=== PATIENT | female | born 1985 | race Caucasian/White ===

== ENCOUNTER 2018-02-07 16:11 | Emergency (ER) | payer BC, OTHER ==
[~2018-02-07] VITALS: Ht 172.7 cm; Wt 86.5 kg
[~2018-02-07 16:11] MED LIST: ACET-1693 PO; CAFF200T13 PO
[2018-02-07 16:16] VITALS: TEMP 36.3; Ht 172.7 cm; Wt 86.5 kg
[2018-02-07] MEDS ORDERED: ALBUT/IPRATROP 3MG/0.5MG NEB 3 ML VIAL INH STA (16:26)
[2018-02-07] MEDS ORDERED: SODIUM CHLORIDE 0.9% 1000ML 2,000 ML IV STA (16:26)
[2018-02-07] MEDS ORDERED: KETOROLAC TROMETHAMINE 30 MG/ML VIAL IV STA (16:26)
[2018-02-07] MEDS ORDERED: DEXAMETHASONE **PF** INJ 10 MG/ML VIAL IV ONE (16:30)
--- NOTE | 2018-02-07 16:39 | EMERGENCY ROOM VISIT NOTE ---
History Report prepared by Guillermo: Dev Perdomo Under the Supervision of: Dr. Gary Sinclair M.D. First contact with patient: 16:22 Chief Complaint: RESPIRATORY PROBLEMS Stated Complaint: REFFERED BY [facility] [employer],POSSIBLE PNEUMONIA,RESP Nursing Triage Summary: Dx with bronchitis on Friday at [facility]. Was given prednisone, albuterol inhaler, and tessalon pearls. Also taking mucinex and cough drops. Pt reports she is getting worse, medications not helping at all. "I just can't breathe at all". Verbalizing she is having difficulty swallowing, though denies sore throat, feels like she is going to pass out, is losing her voice, headache, and isn't sleeping because of orthopnea and coughing. History of Present Illness The patient is a 32 year old female who presents to the Emergency Room with complaints of constant SOB beginning two weeks ago. The patient states that she has been having congestion and a cough for the last two weeks. She notes that she went to [facility] 3 days ago, and was diagnosed with bronchitis. She reports that she was given prednisone and albuterol and has also been taking Mucinex. The patient states that she was referred to the emergency department today. She also complains of lightheadedness, CP, a dry throat, ear pain, and headache. She denies any nausea, vomiting, diarrhea, and urinary symptoms. She notes that she feels lightheaded when she stands up. She reports that her symptoms worsen when she lies flat or takes a deep breath. The patient states that when she coughs, her pain feels like a chest cramp. She notes that she took Tylenol at 0600 this morning. She denies any history of cancer and blood clots. Source of History: patient Onset: two weeks ago Position: chest Quality: cramping Timing: constant Modifying Factors (Worsening): breathing, other (lying flat) Associated Symptoms: + headache, + cough, + chest pain, No nausea, No vomiting, No diarrhea, No urinary symptoms Note: The patient also complains of congestion, lightheadedness, a dry throat, and ear pain. Review of Systems See HPI for pertinent positives and negatives. A total of ten systems were reviewed and were otherwise negative. Past Medical & Surgical Medical Problems: (1) Abdominal pain complicating , antepartum (2) Acute abdominal pain (3) Bronchitis (4) (5) Vaginal bleeding Surgical Problems: (1) History of tonsillectomy Family History No pertinent family history stated. Social History Smoking Status: Never Smoker Alcohol Use: none Drug Use: none Marital Status: Occupation Status: unemployed Current/Historical Medications Scheduled Azithromycin (Zithromax), 250 MG PO DAILY Scheduled PRN Acetaminophen Tab (Tylenol), 650 MG PO Q4 PRN for Pain or Fever Caffeine (Caffeine), 1 TAB PO DAILY PRN for Headache or Pain Ibuprofen Tab (Motrin), 800 MG PO Q8H PRN for Pain Loratadine (Claritin), 10 MG PO DAILY PRN for CONGESTION Allergies Coded Allergies: Bismuth (Verified Allergy, Mild, FACIAL SWELLING/EYES SWELLED SHUT, ) Bismuth Subsalicylate (Verified Allergy, Mild, EYES SWELLED SHUT, FACIAL SWELLING, 02/07/18) Sulfa Drugs (Verified Allergy, Mild, 02/07/18) Sulfamethoxazole (Verified Allergy, Mild, 02/07/18) Trimethoprim (Verified Allergy, Mild, 02/07/18) Uncoded Allergies: CONTROL (Allergy, Intermediate, itching, 09/10/15) patient states that alot of control makes her itch. Physical Exam Vital Signs Date Time Temp Pulse Resp B/P (MAP) Pulse Ox O2 Delivery O2 Flow Rate FiO2 02/07/18 20:01 82 20 127/83 98 02/07/18 17:45 82 20 140/88 100 Room Air 02/07/18 16:16 36.3 81 20 141/99 97 Room Air 02/07/18 16:16 98 Room Air Physical Exam GENERAL: Awake, alert, relatively well-appearing, in no distress, hoarse voice. HENT: Normocephalic, atraumatic. Oropharynx unremarkable. Dry MM. No oropharyngeal edema or injection, no tongue elevation or trismus, no stridor. EYES: Normal conjunctiva. Sclera non-icteric. NECK: Supple. No nuchal rigidity. FROM. No JVD. RESPIRATORY: Clear to auscultation. CARDIAC: Regular rate, normal rhythm. Extremities warm and well perfused. Pulses equal. ABDOMEN: Soft, non-distended. No tenderness to palpation. No rebound or guarding. No masses. RECTAL: Deferred. MUSCULOSKELETAL: Chest examination reveals no tenderness. The back is symmetrical on inspection without obvious abnormality. There is no CVA tenderness to palpation. No joint edema. LOWER EXTREMITIES: Calves are equal size bilaterally and non-tender. No edema. No discoloration. NEURO: Normal sensorium. No sensory or motor deficits noted. SKIN: No rash or jaundice noted. Medical Decision & Procedures ER Provider Diagnostic Interpretation: Radiology results as stated below per my review and radiologist interpretation: CHEST ONE VIEW PORTABLE FINDINGS: The bones soft tissues and hemidiaphragms are normal. The cardiomediastinal silhouette is normal. The lungs are clear. The pulmonary vasculature is normal. IMPRESSION: Negative chest. The above report was generated using voice recognition software. It may contain grammatical, syntax or spelling errors. Electronically signed by: Ivan Alvarez M.D. 02/07/2018 5:09 PM Laboratory Results 02/07/18 16:43 Red Blood Count 4.39, Mean Corpuscular Volume 88.6, Mean Corpuscular Hemoglobin 27.8, Mean Corpuscular Hemoglobin Concent 31.4, Mean Platelet Volume 9.6, Neutrophils (%) (Auto) 81.4, Lymphocytes (%) (Auto) 14.3, Monocytes (%) (Auto) 3.3, Eosinophils (%) (Auto) 0.4, Basophils (%) (Auto) 0.4, Neutrophils # (Auto) 4.44, Lymphocytes # (Auto) 0.78, Monocytes # (Auto) 0.18, Eosinophils # (Auto) 0.02, Basophils # (Auto) 0.02 02/07/18 16:43 Test 02/07/18 16:43 02/07/18 16:55 02/07/18 18:32 White Blood Count 5.45 K/uL (4.8-10.8) Red Blood Count 4.39 M/uL (4.2-5.4) Hemoglobin 12.2 g/dL (12.0-16.0) Hematocrit 38.9 % (37-47) Mean Corpuscular Volume 88.6 fL (80-100) Mean Corpuscular Hemoglobin 27.8 pg (25-34) Mean Corpuscular Hemoglobin Concent 31.4 g/dl (32-36) Platelet Count 257 K/uL (130-400) Mean Platelet Volume 9.6 fL (7.4-10.4) Neutrophils (%) (Auto) 81.4 % Lymphocytes (%) (Auto) 14.3 % Monocytes (%) (Auto) 3.3 % Eosinophils (%) (Auto) 0.4 % Basophils (%) (Auto) 0.4 % Neutrophils # (Auto) 4.44 K/uL (1.4-6.5) Lymphocytes # (Auto) 0.78 K/uL (1.2-3.4) Monocytes # (Auto) 0.18 K/uL (0.11-0.59) Eosinophils # (Auto) 0.02 K/uL (0-0.5) Basophils # (Auto) 0.02 K/uL (0-0.2) RDW Standard Deviation 46.3 fL (36.4-46.3) RDW Coefficient of Variation 14.2 % (11.5-14.5) Immature Granulocyte % (Auto) 0.2 % Immature Granulocyte # (Auto) 0.01 K/uL (0.00-0.02) Anion Gap 6.0 mmol/L (3-11) Est Creatinine Clear Calc Drug Dose 98.8 ml/min Estimated GFR () 92.5 Estimated GFR (Non- 79.8 BUN/Creatinine Ratio 17.1 (10-20) Calcium Level 9.0 mg/dl (8.5-10.1) Total Bilirubin 0.3 mg/dl (0.2-1) Direct Bilirubin < 0.1 mg/dl (0-0.2) Aspartate Amino Transf (AST/SGOT) 30 U/L (15-37) Alanine Aminotransferase (ALT/SGPT) 49 U/L (12-78) Alkaline Phosphatase 71 U/L (45-117) Troponin I < 0.015 ng/ml (0-0.045) Total Protein 7.9 gm/dl (6.4-8.2) Albumin 3.8 gm/dl (3.4-5.0) Lipase 97 U/L (73-393) Urine Color YELLOW Urine Appearance CLEAR (CLEAR) Urine pH 7.0 (4.5-7.5) Urine Specific Beltrami 1.024 (1.000-1.030) Urine Protein NEG (NEG) Urine Glucose (UA) NEG (NEG) Urine Ketones NEG (NEG) Urine Occult Blood NEG (NEG) Urine Nitrite NEG (NEG) Urine Bilirubin NEG (NEG) Urine Urobilinogen NEG (NEG) Urine Leukocyte Esterase NEG (NEG) Urine Test NEG (NEG) Influenza Type A Antigen Neg for Influ A (NEG) Influenza Type B Antigen Neg for Influ B (NEG) Bedside D-Dimer > 450 ng/mlFEU (0-450) Laboratory results reviewed by me Medications Administered Medications (Trade) Dose Ordered Sig/Kevin Route Start Time Stop Time Status Last Admin Dose Admin Sodium Chloride 2,000 ml @ 999 mls/hr Q2H1M STAT IV 02/07/18 16:26 02/07/18 18:26 DC 02/07/18 16:48 999 MLS/HR Ketorolac Tromethamine (Toradol Inj) 15 mg NOW STAT IV 02/07/18 16:26 02/07/18 16:33 DC 02/07/18 16:49 15 MG Dexamethasone Sodium Phosphate (Dexamethasone Inj Pf) 10 mg NOW ONCE IV 02/07/18 16:30 02/07/18 16:33 DC 02/07/18 16:49 10 MG Albuterol/ Ipratropium (Duoneb) 3 ml NOW STAT INH 02/07/18 16:26 02/07/18 16:33 DC 02/07/18 16:49 3 ML Acetaminophen (Tylenol Tab) 1,000 mg NOW STAT PO 02/07/18 17:50 02/07/18 17:52 DC 02/07/18 17:57 1,000 MG Azithromycin (Zithromax Tab) 500 mg NOW STAT PO 02/07/18 18:06 02/07/18 18:07 DC 02/07/18 18:32 500 MG ECG Per My Interpretation Indication: SOB/dyspnea Rate (beats per minute): 70 Rhythm: normal sinus Findings: other (Normal axis, no acute ischemia) ED Course 162: The patient was evaluated in room B3. A complete history and physical exam was performed. 1805: I reevaluated and updated the patient. 1820: I reevaluated the patient. Discussed results and discharge instructions: She verbalized understanding and agreement. The patient is ready for discharge. Medical Decision I reviewed the patient's past medical history, medications, and the nursing notes as described above. Differential diagnosis: Etiologies such as infections, reactive airway disease, pneumonia, pneumothorax , COPD, CHF, cardiac ischemia, pulmonary embolism, musculoskeletal, gastrointestinal, as well as others were entertained. The patient is a 32-year-old woman presents emergency department with worsening symptoms of cough congestion, sore throat, chest pain over the past 2 weeks currently being managed for bronchitis with prednisone and albuterol after seen in urgent care earlier in the week per hpi. On arrival the patient is in no acute distress, afebrile stable vital signs. Labs unremarkable including WBC and troponin within normal limits. Chest x-ray negative for pneumonia. While the is PERC negative. Patient continued to complain of severe pleuritic chest pain and so d-dimer was sent which was elevated. Subsequent CT PE was negative for PE or pneumonia. Thus, the patient's symptoms are most likely related to a bronchitis. We will add azithromycin to the patient's treatment and the patient will follow up with her PCP next week. Findings and plan for follow-up reviewed with patient. Patient agreeable and d/c'd per discharge instructions. Medication Reconcilliation Current Medication List: was personally reviewed by me Blood Pressure Screening Patient's blood pressure: Elevated blood pressure Blood pressure disposition: Elevated BP felt to be situational Impression Primary Impression: Bronchitis Scribe Attestation The scribe's documentation has been prepared under my direction and personally reviewed by me in its entirety. I confirm that the note above accurately reflects all work, treatment, procedures, and medical decision making performed by me. Departure Information Dispostion Home / Self-Care Prescriptions Ibuprofen Tab (MOTRIN) 800 Mg Tab 800 MG PO Q8H Y for Pain for 7 Days, #21 TAB Prov: Gary Sinclair M.D. 02/07/18 Azithromycin (Zithromax) 250 Mg Tab 250 MG PO DAILY, #4 TAB Prov: Gary Sinclair M.D. 02/07/18 Referrals Jaswinder Martinez M.D. (PCP) Forms HOME CARE DOCUMENTATION FORM, IMPORTANT VISIT INFORMATION, WORK / SCHOOL INSTRUCTIONS Patient Instructions ED Bronchitis Asthmatic, [facility] Additional Instructions Please follow up with your primary care physician in the next 1-3 days for re- evaluation. You likely have a bronchitis. Otherwise, your exam, EKG, chest xray, and lab results did not show signs of an emergent condition at this time. Azithromycin as directed. Use your albuterol inhaler 2 puffs every 4 hours for the next 48 hours and then as needed thereafter. Return to the emergency department for worsening symptoms as described in the accompanying instructions.
[2018-02-07 17:00] LABS: BASO % 0.4 %; BASO ABS # 0.02 K/uL (0-0.2); EOS % 0.4 %; EOS ABS # 0.02 K/uL (0-0.5); HEMATOCRIT 38.9 % (37-47); HEMOGLOBIN 12.2 g/dL (12.0-16.0); IG# 0.01 K/uL (0.00-0.02); LYMPH % 14.3 %; LYMPH ABS # 0.78 K/uL (1.2-3.4); MEAN CELL VOLUME 88.6 fL (80-100); MEAN CORPUSCULAR HEMOGLOBIN 27.8 pg (25-34); MEAN CORPUSCULAR HGB CONC 31.4 g/dl (32-36); MEAN PLATELET VOLUME 9.6 fL (7.4-10.4); MONO % 3.3 %; MONO ABS # 0.18 K/uL (0.11-0.59); NEUT % 81.4 %; NEUT ABS # 4.44 K/uL (1.4-6.5); PLATELET COUNT 257 K/uL (130-400); RED CELL DISTRIBUTION WIDTH CV 14.2 % (11.5-14.5); RED CELL DISTRIBUTION WIDTH SD 46.3 fL (36.4-46.3); WHITE BLOOD COUNT 5.45 K/uL (4.8-10.8)
[2018-02-07] MEDS ORDERED: CLR10 PO (17:05)
--- NOTE | 2018-02-07 17:10 | DIAGNOSTIC IMAGING REPORT ---
CHEST ONE VIEW PORTABLE CLINICAL HISTORY: CHEST PAIN dyspnea COMPARISON STUDY: 09/01/2011 FINDINGS: The bones soft tissues and hemidiaphragms are normal. The cardiomediastinal silhouette is normal. The lungs are clear. The pulmonary vasculature is normal. IMPRESSION: Negative chest. The above report was generated using voice recognition software. It may contain grammatical, syntax or spelling errors. Electronically signed by: Ivan Alvarez M.D. 02/07/2018 5:09 PM Dictated Date/Time: 02/07/2018 5:09 PM
[2018-02-07 17:19] LABS: ALBUMIN 3.8 gm/dl (3.4-5.0); ALT/SGPT 49 U/L (12-78); AST/SGOT 30 U/L (15-37); BLOOD UREA NITROGEN 16 mg/dl (7-18); CARBON DIOXIDE 26 mmol/L (21-32); CREATININE 0.95 mg/dl (0.60-1.20); GLUCOSE 120 mg/dl (70-99); LIPASE 97 U/L (73-393); POTASSIUM 3.8 mmol/L (3.5-5.1); SODIUM 138 mmol/L (136-145)
[2018-02-07 17:24] LABS: ALKALINE PHOSPHATASE 71 U/L (45-117); TOTAL PROTEIN 7.9 gm/dl (6.4-8.2)
[2018-02-07 17:31] LABS: INFLUENZA B ANTIGEN Neg for Influ B (NEG)
[2018-02-07] MEDS ORDERED: ACETAMINOPHEN 500 MG TAB PO STA (17:50)
[2018-02-07] MEDS ORDERED: AZIT250T PO (17:59)
[2018-02-07] MEDS ORDERED: AZITHROMYCIN 250 MG TAB PO STA (18:06)
--- NOTE | 2018-02-07 19:27 | DIAGNOSTIC IMAGING REPORT ---
(CHEST FOR PE) ANGIO WITH CT DOSE: 271.91 mGy.cm HISTORY: Chest pain dyspnea TECHNIQUE: Multiaxial CT images of the chest were performed following the intravenous administration of contrast to evaluate the pulmonary arteries. Maximal intensity projection images were also obtained. A dose lowering technique was utilized adhering to the principles of ALARA. COMPARISON STUDY: 09/01/2011 FINDINGS: There is a normal caliber thoracic aorta with no evidence for dissection. There is no evidence for pulmonary embolus. No pleural effusions. No pneumothorax. The liver and spleen are unremarkable. No mediastinal or hilar lymphadenopathy. The central airways are patent. The lungs are clear. IMPRESSION: No evidence for pulmonary embolus. Lungs are clear. The above report was generated using voice recognition software. It may contain grammatical, syntax or spelling errors. Electronically signed by: Ivan Alvarez M.D. 02/07/2018 7:25 PM Dictated Date/Time: 02/07/2018 7:22 PM
[2018-02-07] MEDS ORDERED: OPTIRAY 320 IV PRN (19:30)
[2018-02-07] MEDS ORDERED: IBUP-1451 PO (19:54)
[2018-02-07 20:01] VITALS: BP 127/83; PULSE 82; O2SAT 98
== END 2018-02-07 20:03 | disposition home or self-care (01) ==
LOC: C.EDB 16:12
DX: J40 Bronchitis, not specified as acute or chronic (principal)

== ENCOUNTER → 2018-04-02 | Outpatient (CLI) | payer OTHER ==
[~2018-04-02] MED LIST changes: +AZIT250T PO; +CLR10 PO
== END | disposition home or self-care (01) ==
LOC: C.PATHSPEC 18:12
PROVIDERS: ATTEND Surgery
DX: D23.62 Other benign neoplasm of skin of left upper limb, including shoulder (principal); L81.9 Disorder of pigmentation, unspecified

== ENCOUNTER 2018-07-16 18:47 | Emergency (ER) | payer OTHER ==
[~2018-07-16] VITALS: Ht 172.7 cm; Wt 91.9 kg
[2018-07-16 18:52] VITALS: TEMP 36.7; Ht 172.7 cm; Wt 91.9 kg
--- NOTE | 2018-07-16 19:09 | EMERGENCY ROOM VISIT NOTE ---
History Report prepared by Guillermo: Delmi Alexandre Under the Supervision of: Dr. Dontae Zapata M.D. First contact with patient: 18:58 Chief Complaint: ALLERGIC REACTION Stated Complaint: SWELLED TONGUE;NUMB LIPS;JUST ATE SHELLFISH Nursing Triage Summary: Pt presents ambulatory to triage with upright and steady gait. Reports she ate mussels 20min ago and now has swollen tongue, numbness/tingling in mouth and lips and feels itchy all over. No rash. Took 50mg benadryl 10min ago. Had never eaten mussels prior to today. History of Present Illness The patient is a 33 year old white female with a past medical history of tonsillectomy who presents to the ED with a cc of an episode of allergic reaction beginning 30-40 minutes ago. She reports her tongue became swollen and her mouth and lips were numb. The patient states she took 2 Benadryl, which relieved her symptoms slightly, but she is still experiencing numbness and whole -body itchiness. She denies nausea, vomiting, diarrhea, or difficulty swallowing. The patient reports she had a less severe allergic reaction to imitation lobster last month, and denies any other history of allergies to food. Her last normal menstrual period was today. Source of History: patient Onset: 30-40 minutes ago Position: other (global) Quality: other (allergic reaction) Timing: other (episode ) Associated Symptoms: No nausea, No vomiting, No diarrhea Note: Associated symptom: tongue swelling, numbness of mouth, whole-body itchiness. Denies: difficulty swallowing. Review of Systems See HPI for pertinent positives and negatives. A total of ten systems were reviewed and were otherwise negative. Past Medical & Surgical Medical Problems: (1) Abdominal pain complicating , antepartum (2) Acute abdominal pain (3) Bronchitis (4) (5) Vaginal bleeding Surgical Problems: (1) History of tonsillectomy Social History Smoking Status: Never Smoker Alcohol Use: none Drug Use: none Marital Status: Occupation Status: unemployed Current/Historical Medications Scheduled Azithromycin (Zithromax), 250 MG PO DAILY Scheduled PRN Acetaminophen Tab (Tylenol), 650 MG PO Q4 PRN for Pain or Fever Caffeine (Caffeine), 1 TAB PO DAILY PRN for Headache or Pain Loratadine (Claritin), 10 MG PO DAILY PRN for CONGESTION Allergies Coded Allergies: Bismuth (Verified Allergy, Mild, FACIAL SWELLING/EYES SWELLED SHUT, ) Bismuth Subsalicylate (Verified Allergy, Mild, EYES SWELLED SHUT, FACIAL SWELLING, 02/07/18) Sulfa Drugs (Verified Allergy, Mild, 02/07/18) Sulfamethoxazole (Verified Allergy, Mild, 02/07/18) Trimethoprim (Verified Allergy, Mild, 02/07/18) Uncoded Allergies: CONTROL (Allergy, Intermediate, itching, 09/10/15) patient states that alot of control makes her itch. Physical Exam Vital Signs Date Time Temp Pulse Resp B/P (MAP) Pulse Ox O2 Delivery O2 Flow Rate FiO2 07/16/18 20:54 89 121/79 99 07/16/18 18:54 99 Room Air 07/16/18 18:52 36.7 99 16 134/83 100 Room Air Physical Exam GENERAL: Awake, alert, well-appearing, NAD HENT: Normocephalic, atraumatic.posterior pharynx is clear, no tonsillar or uvular swelling EYES: Normal conjunctiva. Sclera non-icteric. PERRL. No anisocoria. NECK: Supple. No nuchal rigidity. FROM. Non-stridulous RESPIRATORY: CTAB, no rhonchi, wheezing, crackles CARDIAC: RRR, no MRG ABDOMEN: Soft, NTND, BS+ MSK: No chest wall TTP, no LE edema NEURO: GCS 15, CN 2-12 intact, moves all 4s on command SKIN: urticarial rash over L shoulder Medical Decision & Procedures Medications Administered Medications (Trade) Dose Ordered Sig/Kevin Route Start Time Stop Time Status Last Admin Dose Admin Methylprednisolone Sodium Succinate (Solu-Medrol IV) 125 mg NOW STAT IV 07/16/18 19:11 07/16/18 19:13 DC 07/16/18 20:03 125 MG Diphenhydramine HCl (Benadryl Inj) 25 mg NOW STAT IV 07/16/18 19:11 07/16/18 19:13 DC 07/16/18 20:03 25 MG Famotidine (Pepcid Tab) 20 mg NOW ONCE PO 07/16/18 19:15 07/16/18 19:16 DC 07/16/18 20:03 20 MG ED Course 190: The patient was evaluated in room B12A. A complete history and physical exam was performed. 2103: I reevaluated the patient. Discussed results and discharge instructions: she verbalized understanding and agreement. The patient is ready for discharge. Medical Decision Nursing notes reviewed. Ancillary studies and prior records reviewed. The patient is a 33 year old white female with a past medical history of tonsillectomy who presents to the ED with a cc of an episode of allergic reaction beginning 30-40 minutes ago. Differential diagnosis: Etiologies such as allergic reaction, anaphylaxis, urticaria, Rosen-Avni syndrome, toxic epidermal necrolysis, erythema multiforme, cellulitis, as well as others were entertained. Patient was seen and evaluated the bedside. The patient did eat some muscles approximately 45 minutes prior to arrival. The patient noticed that she had some tongue pain and questionable swelling as well as some itchiness. The patient did take 2 Benadryl prior to arrival. The patient states that she has an imitation lobster several weeks ago and had some similar symptoms. The patient is non-stridulous and is clear to auscultation bilaterally. I do not believe that she requires epinephrine at this time. The patient did have an IV placed and the patient did have Solu-Medrol, Benadryl , and Pepcid given. Upon reassessment shortly thereafter at 845 the patient was feeling improved. Patient was given strict follow-up, discharge, and return precautions. All questions were answered. Patient was deemed suitable for outpatient follow-up at this time. Patient agreed with the plan of care and was safely discharged home. Medication Reconcilliation Current Medication List: was personally reviewed by me Blood Pressure Screening Patient's blood pressure: Normal blood pressure Blood pressure disposition: Did not require urgent referral Impression Primary Impression: Allergic reaction Scribe Attestation The scribe's documentation has been prepared under my direction and personally reviewed by me in its entirety. I confirm that the note above accurately reflects all work, treatment, procedures, and medical decision making performed by me. Departure Information Dispostion Home / Self-Care Referrals Jaswinder Martinez M.D. (PCP) Forms HOME CARE DOCUMENTATION FORM, IMPORTANT VISIT INFORMATION Patient Instructions ED Allergic React Food, [facility] Additional Instructions Please return to the emergency department if you have worsening or recurrent symptoms not amenable to at-home treatment. Please call for a follow-up appointment with her primary care physician. Please take your medications as prescribed. If you have other concerns and/or complaints please feel free to also call your primary care physician's office or return the ED for further evaluation, management, and treatment. You may take 400 mg Ibuprofen every 6 hours as needed for pain/fever with food unless told by your physician not to take NSAIDs. You may take tylenol 650 mg every 6 hours as needed for pain/fever unless told by your physician to not take it or have liver problems. You may take motrin and tylenol separately or at the same time. Take your medications as prescribed. Please take your steroids preferably in the morning and with food as they may cause some upset stomach and cause you to be very awake and alert. Follow-up with your primary care physician to discuss any allergy testing. You may consider Benadryl or Cortaid cream. Please do not use the cortisone based cream for more than 2 days at a time as this may cause some skin thinning. You may also consider calamine lotion. You may consider Benadryl. You may also consider oatmeal baths. Please also consider only bathing once daily and making sure that your water is not very hot as washing too frequently and/or using very hot water may also cause some skin dryness and worsening itchiness. Please consider using creams as opposed to lotions as the lotions typically have alcohols which may also further worsen skin dryness and itchiness. You have been examined and treated today on an emergency basis only. This is not a substitute for, or an effort to provide, complete comprehensive medical care. It is impossible to recognize and treat all injuries or illnesses in a single emergency department visit. It is therefore important that you follow up closely with [facility], your PCP, and/or your specialist(s). Call as soon as possible for an appointment. Thank you for your time and consideration. I look forward to speaking with you again soon. Please don't hesitate to call us if you have any questions. Problem Qualifiers Primary Impression: Allergic reaction Encounter type: initial encounter Qualified Codes: T78.40XA - Allergy, unspecified, initial encounter
[2018-07-16] MEDS ORDERED: METHYLPREDNISOLONE 125 MG VIAL IV STA (19:11)
[2018-07-16] MEDS ORDERED: DiphenhydrAMINE HCL 50 MG/ML VIAL IV STA (19:11)
[2018-07-16] MEDS ORDERED: FAMOTIDINE 20 MG TAB PO ONE (19:15)
[2018-07-16 20:54] VITALS: BP 121/79; PULSE 89; O2SAT 99
== END 2018-07-16 20:55 | disposition home or self-care (01) ==
LOC: C.EDB 18:52
DX: T78.40XA Allergy, unspecified, initial encounter (principal); X58.XXXA Exposure to other specified factors, initial encounter; Z88.2 Allergy status to sulfonamides; Z88.8 Allergy status to other drugs, medicaments and biological substances

== ENCOUNTER 2019-08-17 14:28 | Observation (INO) ==
[2019-08-17] MEDS ORDERED: SODIUM CHLORIDE 0.9% 1000ML 1,000 ML IV SCH ×2 (16:15→23:22)
[2019-08-17 17:26] LABS: Basophils # (auto) 0.03 K/uL (0-0.2); Basophils % (auto) 0.3 %; Eosinophils % (auto) 3.1 %; Hematocrit (blood only) 38.1 % (37-47); Hemoglobin 12.3 g/dL (12.0-16.0); Immature Granulocytes # (auto) 0.03 K/uL (0.00-0.02); Immature Granulocytes % (auto) 0.3 %; Lymphocytes # (auto) 2.08 K/uL (1.2-3.4); Lymphocytes % (auto) 21.4 %; Mean Corpuscular Hemoglobin 27.6 pg (25-34); Mean Corpuscular Hgb Conc 32.3 g/dL (32-36); Mean Corpuscular Volume 85.6 fL (80-100); Mean Platelet Volume 10.2 fL (7.4-10.4); Monocytes # (auto) 0.67 K/uL (0.11-0.59); Monocytes % (auto) 6.9 %; Neutrophils # (auto) 6.61 K/uL (1.4-6.5); Platelet Count 245 K/uL (130-400); RDW Standard Deviation 47.2 fL (36.4-46.3); Red Blood Count 4.45 M/uL (4.2-5.4); White Blood Count 9.72 K/uL (4.8-10.8)
[2019-08-17 17:56] LABS: Albumin Globulin Ratio 0.9 (0.9-2); BUN Creatinine Ratio 18.4 (10-20); Bilirubin,Total 0.4 mg/dl (0.2-1); Calcium 8.8 mg/dl (8.5-10.1); Creatinine Clr Calc Pharmacy 113.6 ml/min; Est GFR (African American) 104.3; Globulin 4.5 gm/dl (2.5-4.0); Total Protein 8.5 gm/dl (6.4-8.2)
[2019-08-17 18:06] LABS: Potassium 3.7 mmol/L (3.5-5.1)
--- NOTE | 2019-08-17 18:38 | Ultrasound Report ---
US OB <= 14 weeks fetus HISTORY: 34 years-old Female abd pain vag bleeding acute pelvic pain with vaginal bleeding COMPARISON: CT abdomen and pelvis 10/26/2018 TECHNIQUE: Multiple real time sonographic images of the deep pelvic structures were obtained transabd ominally and transvaginally assessing grayscale appearance, color and spectral flow FINDINGS: TRANSABDOMINAL: Anteflexed uterus, 8.2 x 5.0 x 6.7 cm. Endometrium measures approximately 1.1 cm in thickness. No michelle metrial mass lesion identified. Adnexa are not well seen. TRANSVAGINAL: Nabothian cysts are noted. Uterus measures 7.8 x 5.3 x 5.07 m. 0.2 cm cystic focus noted within the e ndometrium. Additionally, there is an ill-defined irregular hypoechoic area within the endometrium me asuring up to 0.7 x 0.6 x 0.4 cm which may reflect hemorrhagic debris. Endometrium is echogenic measu ring up to 1.4 cm in thickness. Right ovary measures 2.8 x 1.6 x 3.0 cm and is unremarkable with arterial inflow and venous outflow. Left ovary measures 2.6 x 2.0 x 3.2 cm with arterial inflow documented. Thick-walled centrally cystic structure of the left adnexum measures 2.4 x 2.2 x 2.7 cm. This is compatible with an ectopic gestat ion containing a gestational sac, yolk sac and pole which measures 5 mm correlating with estima sindi gestational age of 6 weeks and 1 day. heart rate is noted. IMPRESSION: 1. Ectopic gestation of the left adnexum is noted with gestational sac, yolk sac and living fetus whi ch correlates with estimated gestational age of 6 weeks and 1 day. 2. No evidence of ovarian torsion. Findings were discussed with on 08/17/2019 6:34 PM The above report was generated using voice recognition software. It may contain grammatical, syntax o r spelling errors. Electronically signed by: Gold Osorio M.D. 08/17/2019 6:37 PM
[2019-08-17] MEDS ORDERED: BUPIVACAINE 0.5 % 5 MG/1 ML MPF 30ML VIAL ONE (19:22)
[2019-08-17] MEDS ORDERED: LACTATED RINGER'S 1,000 ML IV SCH (19:30)
--- NOTE | 2019-08-17 19:32 | History & Physical Bridge Note ---
Date of Service August 17, 2019 History & Physical Bridge Note I have examined the patient, reviewed the History & Physical and in the interval since the performance of the History & Physical I have noted the following changes of clinical significance: Formal H&P dictated, not yet transcribed. Patient with Left adnexal ectopic, probable tubal, possible ovarian. Risks.benefits and alternatives discussed. Permit signed. All questions answered
[2019-08-17] MEDS ORDERED: SUCCINYLCHOLINE 100MG/5ML SYR ONE (19:45)
[2019-08-17] MEDS ORDERED: PROPOFOL IV EMULSION 10 MG/ML 20 ML VIAL IV ONE (19:45)
[2019-08-17] MEDS ORDERED: fentaNYL citrate 100 MCG/2 ML VIAL ONE ×2 (19:46→21:08)
[2019-08-17] MEDS ORDERED: MIDAZOLAM HCL 1 MG/ML 2ML VIAL ONE (19:47)
--- NOTE | 2019-08-17 20:01 | Anesthesiology Consultation ---
Date of Service August 17, 2019 Assessment & Plan Chart Review Chart Review: Acceptable Risk for Surgery and Patient NOT seen in Pre Admission Testing Consults Requested none ASA [id number] Proposed Anesthesia Anesthesia Type: General Risk / Benefits Reviewed With: PT / POA / Parent / Guardian, Accepts Plan and Informed Consent Obtained History Surgery Operation Date: 08/17/19 20:30 Proposed Procedures p Laparoscopic Ectopic - Aramis Patterson Jr, MD, FACOG Height/Weight Height: 5 ft 6 in Weight: 102.2 kg Allergies Allergy/AdvReac Type Severity Reaction Status Date / Time Fish Containing Products Allergy Severe Mouth,tongue Verified 08/17/19 17:04 and throat swelling. Hives. shellfish derived Allergy Severe Mouth,tongue Verified 08/17/19 17:04 and throat swelling. Hives. norethindrone [From Marielos] Allergy Intermediate Itchiness Verified 08/17/19 17:04 prednisone Allergy Intermediate Facial Verified 08/17/19 17:04 swelling bismuth subsalicylate Allergy Mild EYES Verified 08/17/19 17:04 SWELLED SHUT, FACIAL SWELLING Sulfa (Sulfonamide Allergy Mild Unknown Verified 08/17/19 17:04 Antibiotics) sulfamethoxazole Allergy Mild Unknown Verified 08/17/19 17:04 trimethoprim Allergy Mild Unknown Verified 08/17/19 17:04 CONTROL Allergy Intermediate itching Uncoded 10/26/18 21:57 Medications Home Medications Medication Instructions Recorded Confirmed Last Taken loratadine [Claritin] 10 mg PO DAILY PRN 10/26/18 08/17/19 Unknown PNV cmb#95-ferrous fumarate-FA 1 tab PO DAILY 08/17/19 08/17/19 Unknown [] albuterol sulfate [Ventolin HFA] 2 puff INHALATION DIRECTED PRN 08/17/19 08/17/19 Unknown NPO Date Last Intake of Fluids: 08/17/19 Time Last Intake of Fluids: 14:00 Date Last Intake of Solids: 08/17/19 Time Last Intake of Solids: 14:00 Past Medical History Medical History Bronchitis Pharyngitis (Acute) Asthma Subserous leiomyoma of uterus Dysfunctional uterine bleeding Dyspareunia Hx of menorrhagia Menorrhagia Ovarian cyst Subserous leiomyoma of uterus Exercise / Class Metabolic Activity II 4-5 Yardwork/Stairs/Walk up hill Past Family History Family History Father Hypertension Skin cancer Past Surgical History Surgical History H/O: myomectomy laparoscopic History of History of myringotomy Hx of tonsillectomy Past Anesthesia History No Hx of Anesthesia Complications and No Family Hx of Anesthesia Complications History of PONV No Hx of PONV and No Hx of Motion Sickness Social History Smoking Status: Never smoker Hx Alcohol Use: Yes Hx Substance Use: No Physical Exam Vital Signs Last Vital Signs Temp 37.0 C 08/17/19 14:57 Pulse 91 H 08/17/19 19:17 Resp 16 08/17/19 19:17 BP 143/91 H 08/17/19 19:17 Pulse Ox 100 08/17/19 19:17 Constitutional + obese ENMT Mouth: + small oral opening Thyromental Distance: < 3.5 Finger Breadths Mallampati Class: III Neck normal visual inspection and trachea midline; neck extension not limited Respiratory normal respiratory effort Auscultation: lungs clear to auscultation bilaterally Cardiovascular Rate/Rhythm: regular rate and regular rhythm Heart Sounds: no murmur Musculoskeletal Spine: normal cervical ROM Neurologic moves all extremities Motor/Sensory: no sensory deficit Psychiatric Orientation: alert and oriented x 3 Testing Laboratory Results 08/17/19 17:09 08/17/19 17:09 PT Cancelled 08/17/19 17:09 INR Cancelled 08/17/19 17:09 APTT Cancelled 08/17/19 17:09 HCG, Quant 7569 mIU/ml 08/17/19 17:09 Blood Type A Positive 08/17/19 17:09 08/17/19 17:09 HCG, Quant 7569
[2019-08-17] MEDS ORDERED: CISATRACURIUM BESYLATE IV SOLN 2 MG/ML 10 ML VIAL IV ONE (21:14)
[2019-08-17] MEDS ORDERED: DEXAMETHASONE SOD INJ 4 MG/ML VIAL ONE (21:14)
--- NOTE | 2019-08-17 21:37 | Post Operative Brief Note ---
PG Immediate Post Op with CF Date of Surgery August 17, 2019 Pre & Post Diagnosis Operation Date: 08/17/19 20:30 Pre-Op Diagnosis: Ectopic Post-Op Diagnosis: Ectopic , left tubal Procedure Operation Date: 08/17/19 20:30 Actual Procedures p Diagnostic Laparoscopy, left partial salpingectomy, lysis of adhesions(Left) - Aramis Patterson Jr, MD, FACOG Surgeon Aramis Patterson Jr, MD, FACOG [employer] None Estimated Blood Loss 30 Findings See Below (distal left tubal adhesed to ovary, partial left salpingectomy, normal right tube/ovary. Adhesion of sigmoid colon to uterus lysed) Specimens Specimen Description: Permanent: A. Left partial salpingectomy Drains Gallo Catheter
[2019-08-17] MEDS ORDERED: LABETALOL HCL IV 5 MG/ML 20ML IV PRN (21:49)
[2019-08-17] MEDS ORDERED: ATROPINE SULFATE 0.1 MG/ML 10ML SYR IV PRN (21:49)
[2019-08-17] MEDS ORDERED: MEPERIDINE HCL 25 MG/ML CARP IV PRN (21:49)
[2019-08-17] MEDS ORDERED: PROMETHAZINE HCL 12.5 MG in SODIUM CHLORIDE 0.9% 50 ML IV PRN (21:49)
[2019-08-17] MEDS ORDERED: FLUMAZENIL 0.1 MG/1 ML 10 ML VIAL IV PRN (21:49)
[2019-08-17] MEDS ORDERED: NALOXONE HCL 0.4 MG/1 ML VIAL/CARP IV PRN (21:49)
[2019-08-17] MEDS ORDERED: ONDANSETRON INJ 2 MG/ML 2 ML VIAL IV PRN ×2 (21:49→23:22)
[2019-08-17] MEDS ORDERED: ePHEDrine sulfate 50 MG/ML AMP IV PRN (21:49)
[2019-08-17] MEDS ORDERED: HYDROmorphone INJ 1 MG/ML SYRINGE ONE ×2 (21:57→22:21)
[2019-08-17] MEDS: HYDROmorphone INJ 1 MG/ML SYRINGE IV PRN ×8 (21:59→22:35)
--- NOTE | 2019-08-17 22:13 | Operative Report ---
DATE OF OPERATION: 08/17/2019 PREOPERATIVE DIAGNOSES: 1. Ectopic . POSTOPERATIVE DIAGNOSES: 1. Ectopic . 2. Left distal tubal . PROCEDURES PERFORMED: 1. Diagnostic laparoscopy. 2. Partial left salpingectomy. 3. Lysis of adhesions. SURGEON: Aramis Patterson MD ANESTHESIA: General. FINDINGS: Laparoscopic examination of the pelvis showed a fallopian tube dilated distally with an ectopic adhered to the left ovary, partial left salpingectomy performed, adhesion of the sigmoid colon to the posterior surface of the uterus adhesed and cauterized and cut. PROCEDURE IN DETAIL: The patient was taken to the operating room and after general anesthesia, was placed in dorsal lithotomy position, draped and prepped in the usual fashion. Gallo catheter was inserted into the bladder which remained there throughout the procedure. Single tooth tenaculum was used to grasp the anterior lip of the cervix. Uterine manipulator was inserted into the uterine cavity and insufflated with 3 mL of air. Small subumbilical incision was made and Veress needle was introduced into the pelvic cavity, which was then insufflated with 3 liters of CO2. Veress needle was removed and through a previous laparoscopic incision a 12-mm laparoscopic port was placed. Camera was inserted. Pelvic organs were visualized and then under direct laparoscopic guidance, a 5 mm suprapubic and left paramedial probes were placed. Evaluation of the pelvis with description as above. The left fallopian tube was grasped with atraumatic graspers, and using the Harmonic scalpel, a distal left salpingectomy was performed, excising the ectopic and freeing it from the left ovary. Specimen was removed in an EndoCatch bag. The pelvis was thoroughly irrigated with warm saline. All pedicles were inspected for hemostasis, which was present. Harmonic scalpel was used to lyse the adhesion of the sigmoid colon to the posterior surface of the uterus. Hemostasis was present. CO2 was allowed to escape from the pelvic cavity. All of the trocars were removed under direct laparoscopic guidance. The 12 mm fascial defect was closed with an interrupted [id number] 0 Vicryl suture. The skin incisions were closed with 4-0 Monocryl subcuticular stitches. 0.5% Marcaine was injected into all the incisions. Hemostasis present. Gallo catheter and uterine manipulator was removed. The patient was taken out of dorsal lithotomy to recovery room in satisfactory condition. I attest to the content of the Intraoperative Record and any orders documented therein. Any exception s are noted below.
--- NOTE | 2019-08-17 22:44 | History and Physical Report ---
DATE OF ADMISSION: 08/17/2019 ADMITTING DIAGNOSIS: Ectopic of the left adnexa. ADMISSION HISTORY: The patient is a 34-year-old 2, para 1 at approximately 6 weeks gestational age, who presented to the Emergency Room for evaluation of vaginal bleeding. The patient had a positive test at home and developed some bleeding today. She is complaining of some generalized lower abdominal cramping and pain. She has had first trimester nausea but no change in that. Of note is the patient had an IUD removed in April of this year. The patient had desired this . The patient's previous was a primary section for a breech presentation secondary to a large posterior fibroid. In 2014, she had a laparoscopic resection of that fibroid. PAST MEDICAL HISTORY: OBSTETRICS AND GYNECOLOGY: As above. MEDICAL: Asthma and anxiety. SURGICAL: Tonsillectomy, myringotomy, arm surgery, wisdom teeth extractions. ALLERGIES: SEPTRA AND PEPTO-BISMOL. SOCIAL HISTORY: No smoking. FAMILY HISTORY: Noncontributory. REVIEW OF SYSTEMS: As per HPI. ADMISSION PHYSICAL EXAMINATION: GENERAL: Today shows a pleasant female in no acute distress. VITAL SIGNS: Blood pressure 143/91, weight of 212 pounds. HEENT EXAMINATION: Unremarkable. NECK: Supple. LUNGS: Clear. HEART: With a regular rhythm and rate. ABDOMEN: Obese, soft, tenderness to deep palpation in lower quadrants, but no rebound, guarding, or organomegaly. Positive bowel sounds. PELVIC: Deferred. EXTREMITIES: Shows no deep calf tenderness. NEUROLOGIC: Grossly intact. DIAGNOSTIC DATA: Radiographical evaluation shows no evidence of an intrauterine . There is an ectopic gestation of the left adnexa with a gestational sac, yolk sac, and heart rate consistent with 6 weeks and 1 day. Origin of the in either the tube or paraovarian is unknown. IMPRESSION: A 34-year-old G2, P1, 6+ weeks gestational age, ectopic . PLAN: Diagnosis has been explained to the patient and her partner. While the patient is clinically stable, she clearly has an ectopic of the left adnexa with no evidence of an intrauterine . The imminent danger to the patient would be sudden rupture of the ectopic causing life-threatening hemorrhage. Because of this, a laparoscopic resection of that ectopic is recommended. What exactly needs to be removed will not be determined until the time of her surgery. As conservative a surgery as possible will be performed, but in all likelihood the patient will lose her left fallopian tube. The risks, benefits, and alternatives to the surgery have been discussed. While the benefits will be removal of the ectopic , the risks are bleeding, infection, inadvertent injury to bowel or bladder, and the need to remove either partial or all of the left adnexa. The patient understands this, permit has been signed, and she wishes to proceed.
--- NOTE | 2019-08-17 22:54 | Emergency Department Note ---
Entered by Ana Paulino acting as a scribe for Otto Brock DO History of Present Illness General Chief complaint: Vaginal Bleeding Stated complaint: 6 WKS, BLEEDING LIGHT CRAMPS Source: patient History of Present Illness Provider complaint: vaginal bleeding Onset (ago): hour(s) 4 Location: genitals Pain Consistency: + now resolved Maximum Pain Intensity: 3 Relieved By: + none Associated symptoms: + other (+slight cramping) The patient is a 34 year old female who presents to the Emergency Room with complaints of vaginal bleeding. The patient reports that she is 6 weeks and her last menstrual period was in June. She reports that today at 1230 she went to the bathroom and when she wiped she noticed blood on the toilet paper. The patient reports that it was bright red blood, but denies any clots. The patient states that she has been experiencing slight dull cramping. She notes that the bleeding lasted an hour, but has resolved. She denies any recent trauma. The patient mentions that this is her second and that her first was breeched and she had a large fibroid. No previous STDs. She denies any previous ectopic pregnancies. Home Medications Home Medications Medication Instructions Recorded Confirmed Type loratadine [Claritin] 10 mg PO DAILY PRN 10/26/18 08/17/19 History PNV cmb#95-ferrous fumarate-FA 1 tab PO DAILY 08/17/19 08/17/19 History [] albuterol sulfate [Ventolin HFA] 2 puff INHALATION DIRECTED PRN 08/17/19 08/17/19 History Allergies Allergy/AdvReac Type Severity Reaction Status Date / Time Fish Containing Products Allergy Severe Mouth,tongue Verified 08/17/19 17:04 and throat swelling. Hives. shellfish derived Allergy Severe Mouth,tongue Verified 08/17/19 17:04 and throat swelling. Hives. norethindrone [From Marielos] Allergy Intermediate Itchiness Verified 08/17/19 17:04 prednisone Allergy Intermediate Facial Verified 08/17/19 17:04 swelling bismuth subsalicylate Allergy Mild EYES Verified 08/17/19 17:04 SWELLED SHUT, FACIAL SWELLING Sulfa (Sulfonamide Allergy Mild Unknown Verified 08/17/19 17:04 Antibiotics) sulfamethoxazole Allergy Mild Unknown Verified 08/17/19 17:04 trimethoprim Allergy Mild Unknown Verified 08/17/19 17:04 CONTROL Allergy Intermediate itching Uncoded 10/26/18 21:57 Past Med/Surg History Medical History Bronchitis Pharyngitis (Acute) Asthma Subserous leiomyoma of uterus Dysfunctional uterine bleeding Dyspareunia Hx of menorrhagia Menorrhagia Ovarian cyst Subserous leiomyoma of uterus Surgical History H/O: myomectomy laparoscopic History of History of myringotomy Hx of tonsillectomy Family History Father Hypertension Skin cancer Social History marital status: Current Living Situation: Spouse Feels Safe at Home: Yes Smoking Status: Never smoker Hx Alcohol Use: Yes Hx Substance Use: No Review of Systems See HPI for pertinent positives & negatives. and A total of 10 systems reviewed and were otherwise negative Physical Exam Vital Signs Vital Signs - 24 hr 08/17/19 14:57 08/17/19 16:43 08/17/19 16:48 Temperature 37.0 C Temperature Source Oral Sepsis Recent Fever Within 48 Hours No Sepsis New/Unexplained Change in Mental Status No Sepsis Action Taken by Nursing No Action Required Pulse Rate 93 H Pulse Rate [Apical] Pulse Rate [Right Finger] 78 Pulse Rate from SpO2 Sensor Pulse Rhythm Regular Respiratory Rate 20 20 Respiratory Effort / Characteristics Non-Labored Spontaneous Non-Labored Respiratory Depth Normal Normal Respiratory Pattern Regular Blood Pressure 141/96 H Blood Pressure [Right Arm] 135/81 Blood Pressure Mean 111 Blood Pressure Mean [Right Arm] 99 Blood Pressure Position Sitting Blood Pressure Position [Right Arm] Pulse Oximetry 100 100 Oxygen Delivery Method Room Air Room Air Room Air Oxygen Flow Rate 08/17/19 19:17 08/17/19 21:52 08/17/19 21:53 Temperature 36.2 C L Temperature Source Temporal Artery Scan Sepsis Recent Fever Within 48 Hours Sepsis New/Unexplained Change in Mental Status Sepsis Action Taken by Nursing Pulse Rate 71 73 Pulse Rate [Apical] 74 Pulse Rate [Right Finger] 91 H Pulse Rate from SpO2 Sensor 71 73 Pulse Rhythm Respiratory Rate 16 18 20 Respiratory Effort / Characteristics Non-Labored Spontaneous Non-Labored Spontaneous Respiratory Depth Normal Normal Respiratory Pattern Regular Blood Pressure 117/75 Blood Pressure [Right Arm] 143/91 H 117/75 Blood Pressure Mean 89 Blood Pressure Mean [Right Arm] 108 89 Blood Pressure Position Blood Pressure Position [Right Arm] Lying Pulse Oximetry 100 100 100 Oxygen Delivery Method Room Air Oxymask Oxygen Flow Rate 10 08/17/19 21:55 08/17/19 21:56 08/17/19 22:00 Temperature Temperature Source Sepsis Recent Fever Within 48 Hours Sepsis New/Unexplained Change in Mental Status Sepsis Action Taken by Nursing Pulse Rate 72 73 68 Pulse Rate [Apical] Pulse Rate [Right Finger] Pulse Rate from SpO2 Sensor 71 73 69 Pulse Rhythm Respiratory Rate 18 13 15 Respiratory Effort / Characteristics Respiratory Depth Respiratory Pattern Blood Pressure 134/64 125/75 Blood Pressure [Right Arm] Blood Pressure Mean 87 91 Blood Pressure Mean [Right Arm] Blood Pressure Position Blood Pressure Position [Right Arm] Pulse Oximetry 100 100 100 Oxygen Delivery Method Oxygen Flow Rate 08/17/19 22:01 08/17/19 22:05 08/17/19 22:06 Temperature Temperature Source Sepsis Recent Fever Within 48 Hours Sepsis New/Unexplained Change in Mental Status Sepsis Action Taken by Nursing Pulse Rate 62 72 71 Pulse Rate [Apical] Pulse Rate [Right Finger] Pulse Rate from SpO2 Sensor 63 72 69 Pulse Rhythm Respiratory Rate 14 15 16 Respiratory Effort / Characteristics Respiratory Depth Respiratory Pattern Blood Pressure 114/73 Blood Pressure [Right Arm] Blood Pressure Mean 86 Blood Pressure Mean [Right Arm] Blood Pressure Position Blood Pressure Position [Right Arm] Pulse Oximetry 100 100 99 Oxygen Delivery Method Oxygen Flow Rate 08/17/19 22:10 08/17/19 22:11 08/17/19 22:15 Temperature Temperature Source Sepsis Recent Fever Within 48 Hours Sepsis New/Unexplained Change in Mental Status Sepsis Action Taken by Nursing Pulse Rate 63 66 66 Pulse Rate [Apical] Pulse Rate [Right Finger] Pulse Rate from SpO2 Sensor 63 68 66 Pulse Rhythm Respiratory Rate 16 14 15 Respiratory Effort / Characteristics Respiratory Depth Respiratory Pattern Blood Pressure 123/75 123/81 Blood Pressure [Right Arm] Blood Pressure Mean 91 95 Blood Pressure Mean [Right Arm] Blood Pressure Position Blood Pressure Position [Right Arm] Pulse Oximetry 100 100 100 Oxygen Delivery Method Oxygen Flow Rate 08/17/19 22:16 08/17/19 22:20 08/17/19 22:21 Temperature Temperature Source Sepsis Recent Fever Within 48 Hours Sepsis New/Unexplained Change in Mental Status Sepsis Action Taken by Nursing Pulse Rate 59 L 65 65 Pulse Rate [Apical] Pulse Rate [Right Finger] Pulse Rate from SpO2 Sensor 59 L 65 66 Pulse Rhythm Respiratory Rate 14 19 14 Respiratory Effort / Characteristics Respiratory Depth Respiratory Pattern Blood Pressure 123/78 Blood Pressure [Right Arm] Blood Pressure Mean 93 Blood Pressure Mean [Right Arm] Blood Pressure Position Blood Pressure Position [Right Arm] Pulse Oximetry 100 100 100 Oxygen Delivery Method Oxygen Flow Rate 08/17/19 22:25 08/17/19 22:26 08/17/19 22:30 Temperature Temperature Source Sepsis Recent Fever Within 48 Hours Sepsis New/Unexplained Change in Mental Status Sepsis Action Taken by Nursing Pulse Rate 61 66 68 Pulse Rate [Apical] Pulse Rate [Right Finger] Pulse Rate from SpO2 Sensor 62 66 69 Pulse Rhythm Respiratory Rate 15 18 15 Respiratory Effort / Characteristics Respiratory Depth Respiratory Pattern Blood Pressure 122/76 115/71 Blood Pressure [Right Arm] Blood Pressure Mean 91 85 Blood Pressure Mean [Right Arm] Blood Pressure Position Blood Pressure Position [Right Arm] Pulse Oximetry 100 100 100 Oxygen Delivery Method Oxygen Flow Rate 08/17/19 22:31 08/17/19 22:35 08/17/19 22:36 Temperature Temperature Source Sepsis Recent Fever Within 48 Hours Sepsis New/Unexplained Change in Mental Status Sepsis Action Taken by Nursing Pulse Rate 63 70 73 Pulse Rate [Apical] Pulse Rate [Right Finger] Pulse Rate from SpO2 Sensor 63 68 72 Pulse Rhythm Respiratory Rate 18 16 12 Respiratory Effort / Characteristics Respiratory Depth Respiratory Pattern Blood Pressure 124/76 Blood Pressure [Right Arm] Blood Pressure Mean 92 Blood Pressure Mean [Right Arm] Blood Pressure Position Blood Pressure Position [Right Arm] Pulse Oximetry 100 96 100 Oxygen Delivery Method Oxygen Flow Rate 08/17/19 22:40 08/17/19 22:41 08/17/19 22:45 Temperature Temperature Source Sepsis Recent Fever Within 48 Hours Sepsis New/Unexplained Change in Mental Status Sepsis Action Taken by Nursing Pulse Rate 76 78 69 Pulse Rate [Apical] Pulse Rate [Right Finger] Pulse Rate from SpO2 Sensor 69 81 68 Pulse Rhythm Respiratory Rate 15 15 18 Respiratory Effort / Characteristics Respiratory Depth Respiratory Pattern Blood Pressure 124/74 131/82 Blood Pressure [Right Arm] Blood Pressure Mean 90 98 Blood Pressure Mean [Right Arm] Blood Pressure Position Blood Pressure Position [Right Arm] Pulse Oximetry 99 94 98 Oxygen Delivery Method Oxygen Flow Rate GENERAL: alert, sitting up in bed, anxious, non toxic, wearing hospital gown and blue leggings EYE EXAM: normal conjunctiva OROPHARYNX: no exudate, no erythema, lips, buccal mucosa, and tongue normal and mucous membranes are moist NECK: supple, no nuchal rigidity, no adenopathy, non-tender LUNGS: Clear to auscultation. Normal chest wall mechanics HEART: no murmurs, S1 normal and S2 normal ABDOMEN: abdomen soft, faint tenderness of suprapubic region, normo-active bowel sounds, no masses, no rebound or guarding. BACK: Back is symmetrical on inspection and there is no deformity, no midline tenderness, no CVA tenderness. SKIN: no rashes and no bruising UPPER EXTREMITIES: upper extremities are grossly normal. LOWER EXTREMITIES: No pitting edema. NEURO EXAM: Normal sensorium, cranial nerves II-XII grossly intact, normal speech, no gross weakness of arms, no gross weakness of legs. Course ED COURSE: Vital signs were reviewed and showed hypertensive The patients medical record was reviewed The above diagnostic studies were performed and reviewed. ED treatments and interventions as stated above. 1619: The patient was evaluated in room A11B. A complete history and physical examination was performed. 1818: I reevaluated the patient and updated her on her results. 1834: I discussed the patient's case with Dr. Osorio- [facility], he reports that the patient has an ectopic on her left fallopian tube. 1839: I reevaluated the patient and updated her on her results. 1840: I discussed the patient's case with Dr. Waterman- [facility] [employer], he accepts the patient for further evaluation. The patient was brought to the OR. Based on the patients age, coexisting illnesses, exam and lab findings the decision to treat as an inpatient was made. The patient remained stable while under my care. The patient will be evaluated for further management. Administered Medications Hydromorphone HCl (Dilaudid) 0.25 mg IV Q5M PRN PRN Reason: PACU Use Only-Pain Stop: 08/18/19 02:50 Last Admin: 08/17/19 22:35 Dose: 0.25 mg Documented by: [id number] Admin: 08/17/19 22:30 Dose: 0.25 mg Documented by: [id number] Admin: 08/17/19 22:25 Dose: 0.25 mg Documented by: [id number] Admin: 08/17/19 22:20 Dose: 0.25 mg Documented by: [id number] Admin: 08/17/19 22:15 Dose: 0.25 mg Documented by: [id number] Admin: 08/17/19 22:10 Dose: 0.25 mg Documented by: [id number] Admin: 08/17/19 22:05 Dose: 0.25 mg Documented by: [id number] Admin: 08/17/19 21:59 Dose: 0.25 mg Documented by: [id number] Promethazine HCl 12.5 mg/ (Sodium Chloride) 50.5 mls @ 204 mls/hr IV ONCE PRN PRN Reason: PACU Use Only-Nausea/Vomiting Stop: 08/18/19 02:51 Last Admin: 08/17/19 22:02 Dose: 204 mls/hr Documented by: [id number] Discontinued Medications Bupivacaine HCl (Marcaine 0.5% Mpf) Confirm Administered Dose 30 ml .ROUTE .STK- MED ONE Stop: 08/17/19 19:23 Last Admin: 08/17/19 21:33 Dose: 10 ml Documented by: [id number] Sodium Chloride (Nss 1000ml) 1,000 mls @ 999 mls/hr IV .Q1H1M FRANKIE Stop: 08/17/19 17:15 Last Infusion: 08/17/19 18:45 Dose: 0 mls/hr Documented by: [id number] Admin: 08/17/19 17:29 Dose: 999 mls/hr Documented by: [id number] Medical Decision Making Differential Diagnosis Differential diagnosis: Etiologies such as appendicitis, diverticulitis, PUD, biliary pathology, UTI, pancreatitis, obstruction, mesenteric ischemia, aortic pathology, infections, inflammatory bowel disease, renal colic, as well as others were entertained. Medical Records Attestation: I reviewed the patient's medical records. Home Medications Current Medication List: was personally reviewed by me Laboratory Data Attestation: I reviewed the patient's lab results. Result diagrams: 08/17/19 17:09 08/17/19 17:09 Lab Results 08/17/19 08/17/19 08/17/19 Range/Units 17:09 17:09 17:09 WBC 9.72 (4.8-10.8) K/uL RBC 4.45 (4.2-5.4) M/uL Hgb 12.3 (12.0-16.0) g/dL Hct 38.1 (37-47) % MCV 85.6 (80-100) fL MCH 27.6 (25-34) pg MCHC 32.3 (32-36) g/dL RDW Std Deviation 47.2 H (36.4-46.3) fL RDW Coeff of Han 15.0 H (11.5-14.5) % Plt Count 245 (130-400) K/uL MPV 10.2 (7.4-10.4) fL Immature Gran % (Auto) 0.3 % Neut % (Auto) 68.0 % Lymph % (Auto) 21.4 % Blanco % (Auto) 6.9 % Eos % (Auto) 3.1 % Baso % (Auto) 0.3 % Immature Gran # (Auto) 0.03 H (0.00-0.02) K/uL Neut # (Auto) 6.61 H (1.4-6.5) K/uL Lymph # (Auto) 2.08 (1.2-3.4) K/uL Blanco # (Auto) 0.67 H (0.11-0.59) K/uL Eos # (Auto) 0.30 (0-0.5) K/uL Baso # (Auto) 0.03 (0-0.2) K/uL PT Cancelled INR Cancelled APTT Cancelled PTT Ratio Cancelled Sodium (136-145) mmol/L Potassium (3.5-5.1) mmol/L Chloride (98-107) mmol/L Carbon Dioxide (21-32) mmol/L Anion Gap (3-11) BUN (7-18) mg/dl Creatinine (0.6-1.2) mg/dl Est Cr Clr Drug Dosing ml/min Est GFR ( Amer) Est GFR (Non-Af Amer) BUN/Creatinine Ratio (10-20) Glucose (70-99) mg/dl Calcium (8.5-10.1) mg/dl Total Bilirubin (0.2-1) mg/dl AST (15-37) U/L ALT (12-78) U/L Alkaline Phosphatase (45-117) U/L Total Protein (6.4-8.2) gm/dl Albumin (3.4-5.0) gm/dl Globulin (2.5-4.0) gm/dl Albumin/Globulin Ratio (0.9-2) HCG, Quant 7569 mIU/ml Blood Type 08/17/19 08/17/19 Range/Units 17:09 17:09 WBC (4.8-10.8) K/uL RBC (4.2-5.4) M/uL Hgb (12.0-16.0) g/dL Hct (37-47) % MCV (80-100) fL MCH (25-34) pg MCHC (32-36) g/dL RDW Std Deviation (36.4-46.3) fL RDW Coeff of Han (11.5-14.5) % Plt Count (130-400) K/uL MPV (7.4-10.4) fL Immature Gran % (Auto) % Neut % (Auto) % Lymph % (Auto) % Blanco % (Auto) % Eos % (Auto) % Baso % (Auto) % Immature Gran # (Auto) (0.00-0.02) K/uL Neut # (Auto) (1.4-6.5) K/uL Lymph # (Auto) (1.2-3.4) K/uL Blanco # (Auto) (0.11-0.59) K/uL Eos # (Auto) (0-0.5) K/uL Baso # (Auto) (0-0.2) K/uL PT INR APTT PTT Ratio Sodium 138 (136-145) mmol/L Potassium 3.7 (3.5-5.1) mmol/L Chloride 104 (98-107) mmol/L Carbon Dioxide 28 (21-32) mmol/L Anion Gap 8.0 (3-11) BUN 16 (7-18) mg/dl Creatinine 0.85 (0.6-1.2) mg/dl Est Cr Clr Drug Dosing 113.6 ml/min Est GFR ( Amer) 104.3 Est GFR (Non-Af Amer) 90.0 BUN/Creatinine Ratio 18.4 (10-20) Glucose 76 (70-99) mg/dl Calcium 8.8 (8.5-10.1) mg/dl Total Bilirubin 0.4 (0.2-1) mg/dl AST 16 (15-37) U/L ALT 36 (12-78) U/L Alkaline Phosphatase 79 (45-117) U/L Total Protein 8.5 H (6.4-8.2) gm/dl Albumin 4.0 (3.4-5.0) gm/dl Globulin 4.5 H (2.5-4.0) gm/dl Albumin/Globulin Ratio 0.9 (0.9-2) HCG, Quant mIU/ml Blood Type A Positive Imaging Data Radiologist's Impression: Radiology results as stated below per my review and the radiologist's interpretation: US OB <= 14 weeks fetus HISTORY: 34 years-old Female abd pain vag bleeding acute pelvic pain with vaginal bleeding COMPARISON: CT abdomen and pelvis 10/26/2018 TECHNIQUE: Multiple real time sonographic images of the deep pelvic structures were obtained transabdominally and transvaginally assessing grayscale appearance, color and spectral flow FINDINGS: TRANSABDOMINAL: Anteflexed uterus, 8.2 x 5.0 x 6.7 cm. Endometrium measures approximately 1.1 cm in thickness. No myometrial mass lesion identified. Adnexa are not well seen. TRANSVAGINAL: Nabothian cysts are noted. Uterus measures 7.8 x 5.3 x 5.07 m. 0.2 cm cystic focus noted within the endometrium. Additionally, there is an ill-defined irregular hypoechoic area within the endometrium measuring up to 0.7 x 0.6 x 0.4 cm which may reflect hemorrhagic debris. Endometrium is echogenic measuring up to 1.4 cm in thickness. Right ovary measures 2.8 x 1.6 x 3.0 cm and is unremarkable with arterial inflow and venous outflow. Left ovary measures 2.6 x 2.0 x 3.2 cm with arterial inflow documented. Thick-walled centrally cystic structure of the left adnexum measures 2.4 x 2.2 x 2.7 cm. This is compatible with an ectopic gestation containing a gestational sac, yolk sac and pole which measures 5 mm correlating with estimated gestational age of 6 weeks and 1 day. heart rate is noted. IMPRESSION: 1. Ectopic gestation of the left adnexum is noted with gestational sac, yolk sac and living fetus which correlates with estimated gestational age of 6 weeks and 1 day. 2. No evidence of ovarian torsion. Findings were discussed with on 08/17/2019 6:34 PM The above report was generated using voice recognition software. It may contain grammatical, syntax or spelling errors. Electronically signed by: Gold Osorio M.D. 08/17/2019 6:37 PM Blood Pressure Blood Pressure Findings: Elevated blood pressure Blood Pressure Disposition: elevated BP felt to be situational MDM Narrative Patient is an 34-year-old female last mental period 6 weeks ago the presents the ER for lower pelvic pain with vaginal bleeding. She notes that she is roughly 6 weeks . She is a G2, P1. IV was established blood work was obtained shows no significant leukocytosis or anemia. INR is unremarkable. BMP with LFTs bilirubin was unremarkable. hCG of 7500. She was a positive. Ultrasound shows ectopic in the left adnexa. Patient was given IV fluids. Discussed the case with [employer] who evaluated her at bedside and took her to the OR for ectopic with vaginal bleeding. Impression & Plan Ectopic , Vaginal bleeding, Abdominal pain Critical Care Time Critical Care Time: Yes Total Critical Care Time: 35 I have personally spent 35 minutes of critical care time in the direct management of this patient. This includes bedside care, interpretation of diagnostic studies, and testing, discussion with consultants, patient, and family members, and other required patient management activities. This 35 minutes is in excess of all separately billable procedures. Discharge Plan Visit Data Chief Complaint: Vaginal Bleeding Stated Complaint: 6 WKS, BLEEDING LIGHT CRAMPS ED Provider: Otto Brock Discharge Problem: Ectopic , Vaginal bleeding, Abdominal pain Patient Disposition: Admitted As Inpatient Discharge Instructions Interventions: ED Discharge Assessment Last Done: 08/17/19 19:43 Discharge Problem: Ectopic Qualifiers: Location of ectopic : tubal Intrauterine status: unspecified Laterality: left Qualified Code(s): O00.102 - Left tubal without intrauterine Abdominal pain Qualifiers: Abdominal location: periumbilical Qualified Code(s): R10.33 - Periumbilical pain The scribe's documentation has been prepared under my direction and personally reviewed by me in its entirety. I confirm that the note above accurately reflects all work, treatment, procedures, and medical decision making performed by me.
[2019-08-17] MEDS ORDERED: KETOROLAC 30 MG/ML VIAL IV PRN (23:22)
[2019-08-17] MEDS ORDERED: OXYCODONE/ACETAMINOPHEN 5mg/325mg TAB PO PRN (23:22)
[2019-08-17] MEDS ORDERED: IBUPROFEN 600 MG TAB PO PRN (23:22)
--- NOTE | 2019-08-17 23:28 | Anesthesiology Progress Note ---
Date of Service August 17, 2019 Anesthesia Post Procedure Vital Signs Vital Signs: Temp Pulse Pulse Pulse Resp BP BP 08/17/19 22:57 37.1 C 08/17/19 22:55 70 21 101/74 08/17/19 22:51 73 20 08/17/19 22:50 71 22 126/80 08/17/19 22:46 79 17 08/17/19 22:45 69 18 131/82 08/17/19 22:41 78 15 124/74 08/17/19 22:40 76 15 08/17/19 22:36 73 12 08/17/19 22:35 70 16 124/76 08/17/19 22:31 63 18 08/17/19 22:30 68 15 115/71 08/17/19 22:26 66 18 08/17/19 22:25 61 15 122/76 08/17/19 22:21 65 14 08/17/19 22:20 65 19 123/78 08/17/19 22:16 59 L 14 08/17/19 22:15 66 15 123/81 08/17/19 22:11 66 14 08/17/19 22:10 63 16 123/75 08/17/19 22:06 71 16 08/17/19 22:05 72 15 114/73 08/17/19 22:01 62 14 08/17/19 22:00 68 15 125/75 08/17/19 21:56 73 13 08/17/19 21:55 72 18 134/64 08/17/19 21:53 73 20 08/17/19 21:52 36.2 C L 71 74 18 117/75 117/75 08/17/19 19:17 91 H 16 143/91 H 08/17/19 16:48 78 20 135/81 08/17/19 14:57 37.0 C 93 H 20 141/96 H Pulse Ox 08/17/19 22:57 97 08/17/19 22:55 97 08/17/19 22:51 100 08/17/19 22:50 98 08/17/19 22:46 100 08/17/19 22:45 98 08/17/19 22:41 94 08/17/19 22:40 99 08/17/19 22:36 100 08/17/19 22:35 96 08/17/19 22:31 08/17/19 22:30 08/17/19 22:26 08/17/19 22:25 08/17/19 22:21 08/17/19 22:20 08/17/19 22:16 08/17/19 22:15 08/17/19 22:11 08/17/19 22:10 08/17/19 22:06 08/17/19 22:05 08/17/19 22:01 08/17/19 22:00 08/17/19 21:56 08/17/19 21:55 08/17/19 21:53 08/17/19 21:52 08/17/19 19:17 08/17/19 16:48 08/17/19 14:57 100 Pain Intensity Pelvic: Pain Intensity: 5 Abdomen: Pain Intensity: 4 Transfer of Care Handoff Completed per policy Notes Mental Status: alert / awake / arousable Patient Amnestic to Procedure: Yes Nausea / Vomiting: adequately controlled Pain: adequately controlled Airway Patency, RR, SpO2: stable & adequate BP & HR: stable & adequate Hydration State: stable & adequate Anesthetic Complications: no major complications apparent
[2019-08-17] MEDS: DiphenhydrAMINE HCL 50 MG/ML VIAL IV PRN (23:57)
[2019-08-18] MEDS: OXYCODONE/ACETAMINOPHEN 5mg/325mg TAB PO PRN ×2 (01:53→08:21)
[2019-08-18] MEDS ORDERED: INFLUENZA VIRUS QUAD VACCINE 0.5 ML SYR IM ONE (05:00)
[2019-08-18] MEDS ORDERED: INFLUENZA ADMINISTRATION CHARGE ONE (05:00)
--- NOTE | 2019-08-18 07:22 | Gynecologic Progress Note ---
Date of Service August 18, 2019 Assessment & Plan (1) Ectopic : - discussed surgery and findings with patient - patient desires d/c - instructions/Rx given - all questions answered Subjective doing well, no c/o Physical Exam Constitutional: WD/WN, vitals as above Gastrointestinal (Abdomen): Incisions clean dry and intact Results & Data Vital Signs (Past 12 Hours) Vital Signs Temp Pulse Pulse Pulse Resp BP BP 08/18/19 05:00 98.4 F 95 H 17 118/69 08/18/19 01:15 98.2 F 100 H 18 130/69 08/18/19 00:15 98.6 F 78 18 103/67 08/17/19 23:45 99.0 F 73 17 113/72 08/17/19 23:15 98.4 F 73 17 114/72 08/17/19 22:57 98.8 F 08/17/19 22:55 70 21 101/74 08/17/19 22:51 73 20 08/17/19 22:50 71 22 126/80 08/17/19 22:46 79 17 08/17/19 22:45 69 18 131/82 08/17/19 22:41 78 15 124/74 08/17/19 22:40 76 15 08/17/19 22:36 73 12 08/17/19 22:35 70 16 124/76 08/17/19 22:31 63 18 08/17/19 22:30 68 15 115/71 08/17/19 22:26 66 18 08/17/19 22:25 61 15 122/76 08/17/19 22:21 65 14 08/17/19 22:20 65 19 123/78 08/17/19 22:16 59 L 14 08/17/19 22:15 66 15 123/81 08/17/19 22:11 66 14 08/17/19 22:10 63 16 123/75 08/17/19 22:06 71 16 08/17/19 22:05 72 15 114/73 08/17/19 22:01 62 14 08/17/19 22:00 68 15 125/75 08/17/19 21:56 73 13 08/17/19 21:55 72 18 134/64 08/17/19 21:53 73 20 08/17/19 21:52 97.2 F L 71 74 18 117/75 117/75 Pulse Ox 08/18/19 05:00 97 08/18/19 01:15 100 08/18/19 00:15 96 08/17/19 23:45 97 08/17/19 23:15 99 08/17/19 22:57 97 08/17/19 22:55 97 08/17/19 22:51 100 08/17/19 22:50 98 08/17/19 22:46 100 08/17/19 22:45 98 08/17/19 22:41 94 08/17/19 22:40 99 08/17/19 22:36 100 08/17/19 22:35 96 08/17/19 22:31 100 08/17/19 22:30 100 08/17/19 22:26 100 08/17/19 22:25 100 08/17/19 22:21 100 08/17/19 22:20 100 08/17/19 22:16 100 08/17/19 22:15 100 08/17/19 22:11 100 08/17/19 22:10 100 08/17/19 22:06 99 08/17/19 22:05 100 08/17/19 22:01 100 08/17/19 22:00 100 08/17/19 21:56 100 08/17/19 21:55 100 08/17/19 21:53 100 08/17/19 21:52 100 PG Care Time/CCT Total # of Minutes Spent Total Time Spent with Patient: Total time spent is greater than 50% in coordination of care (as documented) at patient's floor/unit and/or counseling patient: (1) Ectopic Intrauterine status: unspecified Laterality: left Location of ectopic : tubal Qualified Code(s): O00.102 - Left tubal without intrauterine
[2019-08-18] MEDS: DiphenhydrAMINE HCL 50 MG/ML VIAL IV PRN (07:39)
--- NOTE | 2019-08-18 08:17 | Discharge Summary ---
Date of Service August 18, 2019 Admission HPI Per Admitting Provider The patient is a 34-year-old 2, para 1 at approximately 6 weeks gestational age, who presented to the Emergency Room for evaluation of vaginal bleeding. The patient had a positive test at home and developed some bleeding today. She is complaining of some generalized lower abdominal cramping and pain. She has had first trimester nausea but no change in that. Of note is the patient had an IUD removed in April of this year. The patient had desired this . The patient's previous was a primary section for a breech presentation secondary to a large posterior fibroid. In 2014, she had a laparoscopic resection of that fibroid. Admission Exam (Per Admitting) Constitutional ADMISSION PHYSICAL EXAMINATION: GENERAL: Today shows a pleasant female in no acute distress. VITAL SIGNS: Blood pressure 143/91, weight of 212 pounds. HEENT EXAMINATION: Unremarkable. NECK: Supple. LUNGS: Clear. HEART: With a regular rhythm and rate. ABDOMEN: Obese, soft, tenderness to deep palpation in lower quadrants, but no rebound, guarding, or organomegaly. Positive bowel sounds. PELVIC: Deferred. EXTREMITIES: Shows no deep calf tenderness. NEUROLOGIC: Grossly intact. Discharge Data Consultations 08/17/19 18:37 Consult Obstetrics Stat Procedures Performed Operation Date: 08/17/19 20:30 Actual Procedures p Diagnostic Laparoscopy, left partial salpingectomy, lysis of adhesions(Left) - Aramis Patterson Jr, MD, [facility] Course (1) Ectopic : The patient was taken to the OR where the ectopic removed, distal left salpingectomy. See OP Note for details. Patient was d/c'd home POD #1. Instructions/Rx given. F/u in 4 weeks for post-op check
== END 2019-08-18 11:15 | disposition home or self-care (01) ==
LOC: ED 14:28 → OR 19:43 → 4S2 19:43

== ENCOUNTER 2020-10-20 00:10 | Observation (INO) ==
[2020-10-20] MEDS ORDERED: SODIUM CHLORIDE 0.9% 1000ML 1,000 ML IV ONE (01:11)
[2020-10-20] MEDS ORDERED: GI COCKTAIL ED USE PO ONE (01:11)
[2020-10-20] MEDS ORDERED: KETOROLAC 30 MG/ML VIAL IV STA (01:11)
[2020-10-20] MEDS ORDERED: ONDANSETRON INJ 2 MG/ML 2 ML VIAL IV STA (01:11)
[2020-10-20] MEDS ORDERED: FAMOTIDINE 20MG IV PUSH 20 MG/5 ML SYR IV STA (01:11)
[2020-10-20 01:20] LABS: Basophils # (auto) 0.02 K/uL (0-0.2); Basophils % (auto) 0.2 %; Eosinophils # (auto) 0.04 K/uL (0-0.5); Eosinophils % (auto) 0.3 %; Hematocrit (blood only) 37.4 % (37-47); Hemoglobin 12.2 g/dL (12.0-16.0); Immature Granulocytes # (auto) 0.02 K/uL (0.00-0.02); Immature Granulocytes % (auto) 0.2 %; Lymphocytes # (auto) 3.24 K/uL (1.2-3.4); Lymphocytes % (auto) 25.1 %; Mean Corpuscular Hemoglobin 28.9 pg (25-34); Mean Corpuscular Hgb Conc 32.6 g/dL (32-36); Mean Corpuscular Volume 88.6 fL (80-100); Mean Platelet Volume 9.8 fL (7.4-10.4); Monocytes # (auto) 1.14 K/uL (0.11-0.59); Monocytes % (auto) 8.8 %; Neutrophils # (auto) 8.45 K/uL (1.4-6.5); Neutrophils % (auto) 65.4 %; Platelet Count 296 K/uL (130-400); RDW Coefficient of Variation 13.5 % (11.5-14.5); RDW Standard Deviation 44.1 fL (36.4-46.3); Red Blood Count 4.22 M/uL (4.2-5.4); White Blood Count 12.91 K/uL (4.8-10.8)
[2020-10-20 01:39] LABS: Albumin Level 3.9 gm/dl (3.4-5.0); Bilirubin,Total 0.3 mg/dl (0.2-1); Creatinine Clr Calc Pharmacy 99.5 ml/min; Est GFR (African American) 83.1; Est GFR (Non-African American) 71.7; Potassium 3.4 mmol/L (3.5-5.1); Total Protein 7.9 gm/dl (6.4-8.2)
[2020-10-20] MEDS ORDERED: MoRPHine SULFATE 4 MG/ML 1 ML CARP\\VIAL IV STA (01:58)
--- NOTE | 2020-10-20 03:54 | Emergency Department Note ---
History of Present Illness General Chief Complaint: Abdominal Pain Stated Complaint: ABD PAIN,VOMITING Time Seen by Provider: 10/20/20 00:54 Source: patient Mode of arrival: ambulatory Limitations: no limitations History of Present Illness Provider Complaint: abdominal pain Onset (ago): 3 day(s) Pain Consistency: constant Location: RUQ Radiation: other (diffuse) Migration to: no migration Severity: severe Maximum Pain Intensity: 3 Current Pain Intensity: 3 Quality: + aching and + sharp Relieved By: + nothing Exacerbated By: + nothing Associated Symptoms: + nausea, + vomiting and + chills Treatments prior to arrival: NSAIDs (ibuprofen 5pm) This 35-year-old female patient presents to the emergency department today via private vehicle for evaluation of abdominal pain, nausea, and vomiting. She was here yesterday with the same symptoms. She states symptoms have not improved, and in fact worsened after eating turkey, mashed potatoes, cheese cake. She states she was watching television when the pain suddenly worsened and was associated with nausea and vomiting at approximately 9 PM. She reports ongoing nausea, but no further vomiting. She feels that her upper body is very sore at this time. The patient states CT imaging yesterday was consistent with gallstones. She reports family history of "gallbladder problems" requiring cholecystectomy. Patient denies any fever. She denies hematemesis. No cough or recent illness. No diarrhea or constipation. Last menstrual period was 1 week ago. Last bowel movement was yesterday. Related Data Date of Last Menstrual Period: 10/13/20 Patient Confirmed : No Home Medications Medication Instructions Recorded Confirmed Type escitalopram oxalate 10 mg tablet 10 mg PO .COMPLEX #14 tab 07/24/20 10/20/20 Rx lorazepam 1 mg tablet 1 mg PO DAILY PRN #30 tab 10/16/20 10/20/20 Rx acetaminophen [Tylenol] 650 mg PO QID PRN 10/18/20 10/20/20 History bupropion HCl 200 mg PO QAM 10/18/20 10/20/20 History calcium carbonate [Tums] 200 mg PO QID PRN 10/18/20 10/20/20 History celecoxib 200 mg PO Q2D 10/18/20 10/20/20 History melatonin 10 mg PO HS PRN 10/18/20 10/20/20 History montelukast 10 mg PO DAILY PRN 10/18/20 10/20/20 History trazodone 150 mg PO HS 10/18/20 10/20/20 History calcium carbonate [Calcium 300] 300 mg PO 3XWK 10/20/20 10/20/20 History Allergies Allergy/AdvReac Type Severity Reaction Status Date / Time Fish Containing Products Allergy Severe Mouth,tongue Verified 10/20/20 01:32 and throat swelling. Hives. shellfish derived Allergy Severe Mouth,tongue Verified 10/20/20 01:32 and throat swelling. Hives. norethindrone [From Marielos] Allergy Intermediate Itchiness Verified 10/20/20 01:32 prednisone Allergy Intermediate Facial Verified 10/20/20 01:32 swelling bismuth subsalicylate Allergy Mild EYES Verified 10/20/20 01:32 SWELLED SHUT, FACIAL SWELLING Sulfa (Sulfonamide Allergy Mild Unknown Verified 10/20/20 01:32 Antibiotics) sulfamethoxazole Allergy Mild Unknown Verified 10/20/20 01:32 trimethoprim Allergy Mild Unknown Verified 10/20/20 01:32 Past Med/Surg History Medical History (Updated 10/20/20 @ 04:09 by Isela Menendez PA-C) Asthma Compound nevus Dysfunctional uterine bleeding Dyspareunia Ectopic Menorrhagia Ovarian cyst Premenstrual dysphoric syndrome Sebaceous cyst Subserous leiomyoma of uterus Surgical History H/O: myomectomy laparoscopic History of History of myringotomy Hx of tonsillectomy Family History Father Hypertension Skin cancer Social History Smoking Status: Never smoker Second Hand Exposure: No; Hx Alcohol Use: Yes Hx Substance Use: No Preferred Language: Malay Communication Ability: Effective 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 Beliefs That Will Affect Care: None marital status: Current Living Situation: Spouse Feels Safe at Home: Yes Assistive Devices: None Review of Systems A total of 10 systems reviewed and were otherwise negative Physical Exam Vital Signs: Vital Signs - 24 hr 10/20/20 00:15 10/20/20 01:15 10/20/20 01:26 Temperature 36.4 C L Temperature Source Oral Pulse Rate 83 Pulse Rate [Right Finger] 69 Respiratory Rate 18 20 Respiratory Effort / Characteristics Non-Labored Respiratory Depth Normal Blood Pressure 147/97 H Blood Pressure [Le ft Arm] 118/89 Blood Pressure Leona n 113 Blood Pressure Leona n [Left Arm] 98 Pulse Oximetry 98 98 98 Oxygen Delivery Me thod Room Air Room Air Room Air Sepsis Recent Feve r Within 48 Hours No Sepsis New/Unexpla ined Change in Men tonie Status N/A Sepsis Action Take n by Nursing No Action Required 10/20/20 02:09 Temperature Temperature Source Pulse Rate Pulse Rate [Right Finger] 86 Respiratory Rate 20 Respiratory Effort / Characteristics Respiratory Depth Blood Pressure Blood Pressure [Le ft Arm] 138/95 Blood Pressure Leona n Blood Pressure Leona n [Left Arm] 109 Pulse Oximetry 99 Oxygen Delivery Me thod Room Air Sepsis Recent Feve r Within 48 Hours Sepsis New/Unexpla ined Change in Men tonie Status Sepsis Action Take n by Nursing Physical Exam: VITALS: Vitals are noted on the nurse's note and reviewed by myself. Patient is hypertensive. Not tachycardic. She is afebrile and not hypoxic. GENERAL: This is a 35-year-old white female, in no acute distress, nondiaphoretic, well-developed well-nourished. SKIN: The skin was without rashes, erythema, edema, or bruising. There is no tenting of the skin. Capillary refill less than 2 seconds. HEAD: Normocephalic atraumatic. EYES: Conjunctivae without injection, sclerae without icterus. NECK: Supple without nuchal rigidity. No lymphadenopathy. Cervical spine is nontender. No JVD. HEART: Regular rate and rhythm without murmurs gallops or rubs. LUNGS: Clear to auscultation bilaterally without wheezes, rales or rhonchi. No retractions or accessory muscle use. ABDOMEN: Positive bowel sounds x 4. Normal tympanic percussion. Generalized tenderness palpation. Positive Valle sign. Abdomen otherwise soft, without masses or organomegaly. Valle sign negative. Diffuse guarding. No rebound tenderness. MUSCULOSKELETAL: No muscle atrophy, erythema, or edema noted. Full range of motion without joint tenderness in all extremities. No tenderness to palpation. Normal gait. Strength 5/5 throughout. NEURO: Patient was alert and oriented to person place and time. No focal neurological deficits. Course Course The patient was seen and evaluated as above. Previous medical records reviewed. An order was placed for continuous cardiac monitoring. The monitor shows a normal sinus rhythm at a rate of 86 bpm. IV access obtained, labs drawn. Patient medicated with IV fluids, Zofran, Toradol, Pepcid, and GI cocktail. Imaging performed and reviewed by myself and radiologist as noted. Labs reviewed by myself. I discussed the findings with the patient at bedside. We discussed disposition options, and the patient would prefer to stay in the hospital due to her pain. I discussed the case with Dr. Vasquez, general surgeon on-call. She will admit the patient for observation at this time. I discussed the case with the senior electrical project manager. Pt. will be admitted to general surgery service. Please see surgery dictation regarding ongoing management and care of this patient. Administered Medications Discontinued Medications Al Hydrox/Mg Hydrox/Simethicone (Gi Cocktail Ed Use) 1 dose PO ONE ONE Stop: 10/20/20 01:12 Last Admin: 10/20/20 01:21 Dose: 1 dose Documented by: [id number] Sodium Chloride (Nss 1000ml) 1,000 mls @ 999 mls/hr IV .Q1H1M ONE Stop: 10/20/20 02:11 Last Infusion: 10/20/20 02:09 Dose: 0 mls/hr Documented by: [id number] Admin: 10/20/20 01:21 Dose: 999 mls/hr Documented by: [id number] Famotidine (Pepcid 20mg Iv Push) 20 mg in 5 mls @ 2.5 mls/min IV NOW STA Stop: 10/20/20 01:12 Last Admin: 10/20/20 01:21 Dose: 2.5 mls/min Documented by: [id number] Ketorolac Tromethamine (Ketorolac 30 Mg/Ml Vial) 30 mg IV NOW STA Stop: 10/20/20 01:12 Last Admin: 10/20/20 01:21 Dose: 30 mg Documented by: [id number] Morphine Sulfate (Morphine Sulfate 4 Mg/Ml 1 Ml Carp\\Vial) 4 mg IV NOW STA Stop: 10/20/20 01:59 Last Admin: 10/20/20 02:06 Dose: 4 mg Documented by: [id number] Ondansetron HCl (Ondansetron Inj 2 Mg/Ml 2 Ml Vial) 4 mg IV NOW STA Stop: 10/20/20 01:12 Last Admin: 10/20/20 01:21 Dose: 4 mg Documented by: [id number] Medical Decision Making Differential Diagnosis + peptic ulcer disease, + biliary pathology, + UTI, + obstruction, + mesenteric ischemia, + aortic pathology, + infections, + inflammatory bowel disease, + renal colic, + ectopic (female), + ovarian torsion (female), + tubo- ovarian abscesses (female), + pelvic inflammatory disease (female), + abdominal pain, + appendicitis, + calculus of kidney, + constipation, + diverticulitis, + endometriosis, + gastroenteritis, + pancreatitis and + small bowel obstruction Medical Records Attestation: I reviewed the patient's medical records. Home Medications Current Medication List: was personally reviewed by me Laboratory Data Attestation: I reviewed the patient's lab results. Leukocytosis of 12.9. This has increased from white blood cell count of 8000 yesterday. No anemia or thrombocytopenia. Renal, hepatic function and electrolytes without significant abnormality. Lipase 99. Patient unable to provide urine sample while in the emergency department. Result diagrams: 10/20/20 00:31 10/20/20 00:31 Lab Results 10/20/20 10/20/20 Range/Units 00:31 00:31 WBC 12.91 H (4.8-10.8) K/uL RBC 4.22 (4.2-5.4) M/uL Hgb 12.2 (12.0-16.0) g/dL Hct 37.4 (37-47) % MCV 88.6 (80-100) fL MCH 28.9 (25-34) pg MCHC 32.6 (32-36) g/dL RDW Std Deviation 44.1 (36.4-46.3) fL RDW Coeff of Han 13.5 (11.5-14.5) % Plt Count 296 (130-400) K/uL MPV 9.8 (7.4-10.4) fL Immature Gran % (Auto) 0.2 % Neut % (Auto) 65.4 % Lymph % (Auto) 25.1 % [place] % (Auto) 8.8 % Eos % (Auto) 0.3 % Baso % (Auto) 0.2 % Neut # (Auto) 8.45 H (1.4-6.5) K/uL Lymph # (Auto) 3.24 (1.2-3.4) K/uL Amite # (Auto) 1.14 H (0.11-0.59) K/uL Eos # (Auto) 0.04 (0-0.5) K/uL Baso # (Auto) 0.02 (0-0.2) K/uL Immature Gran # (Auto) 0.02 (0.00-0.02) K/uL Sodium 136 (136-145) mmol/L Potassium 3.4 L (3.5-5.1) mmol/L Chloride 105 (98-107) mmol/L Carbon Dioxide 27 (21-32) mmol/L Anion Gap 4.0 (3-11) BUN 22 H D (7-18) mg/dl Creatinine 1.02 (0.6-1.2) mg/dl Est Cr Clr Drug Dosing 99.5 ml/min Est GFR ( Amer) 83.1 Est GFR (Non-Af Amer) 71.7 BUN/Creatinine Ratio 22.0 H (10-20) Glucose 103 H (70-99) mg/dl Calcium 9.0 (8.5-10.1) mg/dl Total Bilirubin 0.3 (0.2-1) mg/dl AST 13 L (15-37) U/L ALT 20 (12-78) U/L Alkaline Phosphatase 63 (45-117) U/L Total Protein 7.9 (6.4-8.2) gm/dl Albumin 3.9 (3.4-5.0) gm/dl Globulin 4.0 (2.5-4.0) gm/dl Albumin/Globulin Ratio 1.0 (0.9-2) Lipase 99 (73-393) U/L Imaging Data Radiologist's Impression: US RUQ: Stones and sludge are visualized within the gallbladder without gallbladder wall thickening or pericholecystic fluid to suggest acute cholecystitis. No common bile duct dilation. Radiologist: Kaylee Laughlin M.D Blood Pressure Blood Pressure Findings: Elevated blood pressure Blood Pressure Disposition: elevated BP felt to be situational MDM Narrative This 35-year-old female patient presents to the emergency department today for evaluation of abdominal pain and vomiting. She was here yesterday for similar symptoms. Pain has not improved and in fact worsened this evening. Patient is afebrile. There was note of gallstones on her CT abdomen/pelvis completed yesterday. No evidence of acute cholecystitis at that time. Ultrasound of the right upper quadrant completed today does show stones and sludge within the gallbladder, but no gallbladder wall thickening or pericholecystic fluid to suggest acute cholecystitis. No common bile duct dilation. Patient does not have a leukocytosis of 12.9, up from 8. Bilirubin 0.3. She is afebrile. Repeat abdominal examination with ongoing guarding and diffuse tenderness, particularly right upper quadrant tenderness and positive Valle sign. The patient does not feel comfortable being discharged home due to her ongoing symptoms. I did consult with the general surgeon who agreed to keep the patient for observation and will evaluate her for further management. Please see surgery dictation regarding ongoing management care of this patient. The chart was completed utilizing [employer] Speech voice recognition software. Grammatical errors, random word insertions, pronoun errors, and incomplete sentences are an occasional consequence of this system due to software limitations, ambient noise, and hardware issues. Any formal questions or concerns about the content, text, or information contained within the body of this dictation should be directly addressed to the provider for clarification. Impression & Plan Abdominal pain, Cholelithiasis, Nausea & vomiting Discharge Plan Visit Data Chief Complaint: Abdominal Pain Stated Complaint: ABD PAIN,VOMITING ED Provider: Janice Lu ED Midlevel Provider: Isela Menendez Discharge Problem: Abdominal pain, Cholelithiasis, Nausea & vomiting Patient Disposition: Admitted As Inpatient Condition: Good Forms Stand Alone Forms: [facility], [facility] Department, Important Visit Information Prescriptions Prescriptions: No Action lorazepam 1 mg tablet 1 mg PO DAILY PRN (Reason: anxiety) Qty: 30 RF: 0 escitalopram oxalate [Lexapro] 10 mg tablet 10 mg PO .COMPLEX Qty: 14 RF: 5 bupropion HCl 200 mg tablet sustained-release 12 hr 200 mg PO QAM RF: 0 montelukast 10 mg tablet 10 mg PO DAILY PRN (Reason: Allergy Symptoms) RF: 0 trazodone 150 mg tablet 150 mg PO HS RF: 0 melatonin 10 mg Tablet 10 mg PO HS PRN (Reason: Insomnia) RF: 0 celecoxib 200 mg capsule 200 mg PO Q2D RF: 0 acetaminophen [Tylenol] 325 mg Tablet 650 mg PO QID PRN (Reason: Pain) RF: 0 calcium carbonate [Tums] 200 mg calcium (500 mg) Tablet,Chewable 200 mg PO QID PRN (Reason: Gi Upset) RF: 0 calcium carbonate [Calcium 300] 300 mg (750 mg) Tablet,Chewable 300 mg PO 3XWK RF: 0 Referrals Referrals: Teodoro Martinez MD [Primary Care Provider] -
[2020-10-20] MEDS ORDERED: MONTELUKAST SODIUM 10 MG TABLET PO PRN (05:27)
[2020-10-20] MEDS ORDERED: MoRPHine SULFATE 2 MG/ML CARP IV PRN (05:27)
[2020-10-20] MEDS ORDERED: LORazepam 1 MG TAB PO PRN (05:30)
[2020-10-20] MEDS: LACTATED RINGER'S 1,000 ML IV SCH ×2 (06:14→18:23)
--- NOTE | 2020-10-20 08:14 | Ultrasound Report ---
ABDOMINAL ULTRASOUND, RIGHT UPPER QUADRANT HISTORY: Generalized abdominal pain, cholelithiasis noted on CT. COMPARISON: Abdomen and pelvis CT 10/18/2020. FINDINGS: Pancreas: The pancreas demonstrates a normal echotexture. Liver: Unremarkable. Gallbladder: No gallbladder wall thickening. There are few small gallstones. CBD: 4 mm. Right kidney: No hydronephrosis. IMPRESSION: Cholelithiasis. No gallbladder wall thickening. ACT 112: Negative or not required by law. Electronically signed by: Robin Haas M.D. 10/20/2020 8:13 AM
[2020-10-20] MEDS: buPROPion SR 100 MG TABCR PO SCH (10:20)
--- NOTE | 2020-10-20 13:06 | History & Physical Report ---
Date of Service October 20, 2020 Assessment & Plan (1) Abdominal pain: This patient has cholelithiasis. The CT and ultrasound showed no evidence of thickening of the gallbladder wall or pericholecystic fluid. Her abdominal pain is throughout her abdomen as is her tenderness which would not be consistent with a gallbladder etiology. I have recommended a hepatobiliary scan to further delineate gallbladder pathology and we can make further decisions after the results of that is known. Admission and Anticipated Discharge Date Admission Date: October 20, 2020 History of Present Illness Chief Complaint: Abdominal pain Primary Care Provider: Jaswinder Martinez MD This is a 35-year-old female who presented back to the emergency room with a complaint of abdominal pain. The patient states that her discomfort began 2 days ago. 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 The intensity increased. It continued into the evening and she was seen in the emergency room where a work-up including a CT scan of the abdomen showed only ch olelithiasis but no evidence of cholecystitis. There were no other abnormalities identified. She went home and yesterday had some mild discomfort. She ate small amounts of food but then last night had an increase in the intensity of the discomfort. She described the first discomfort just to the left of the midline in the upper abdomen. It then moved towards the right and around to her back and it was throughout her abdomen. At the present time she points to the entire right side of her abdomen as the most severe discomfort but has discomfort throughout. She had nausea and last night developed multiple episodes of vomiting. It was for retained food stuff. She had no hematemesis. She had some diarrhea on the day of the onset of the discomfort. She has had soft stools since. A few weeks ago she had a day with frequent diarrhea. Over the next 2 days the frequency decreased. She did not have mucus with her stool. There is no personal or family history of inflammatory bowel disease. She had no dysuria or hematuria. She denies melena and hematochezia. She has not had fever or chills. Allergies Allergy/AdvReac Type Severity Reaction Status Date / Time Fish Containing Products Allergy Severe Mouth,tongue Verified 10/20/20 01:32 and throat swelling. Hives. shellfish derived Allergy Severe Mouth,tongue Verified 10/20/20 01:32 and throat swelling. Hives. norethindrone [From Marielos] Allergy Intermediate Itchiness Verified 10/20/20 01:32 prednisone Allergy Intermediate Facial Verified 10/20/20 01:32 swelling bismuth subsalicylate Allergy Mild EYES Verified 10/20/20 01:32 SWELLED SHUT, FACIAL SWELLING Sulfa (Sulfonamide Allergy Mild Unknown Verified 10/20/20 01:32 Antibiotics) sulfamethoxazole Allergy Mild Unknown Verified 10/20/20 01:32 trimethoprim Allergy Mild Unknown Verified 10/20/20 01:32 Home Medications Medication Instructions Recorded Confirmed Type escitalopram oxalate 10 mg tablet 10 mg PO .COMPLEX #14 tab 07/24/20 10/20/20 Rx lorazepam 1 mg tablet 1 mg PO DAILY PRN #30 tab 10/16/20 10/20/20 Rx acetaminophen [Tylenol] 650 mg PO QID PRN 10/18/20 10/20/20 History bupropion HCl 200 mg PO QAM 10/18/20 10/20/20 History calcium carbonate [Tums] 200 mg PO QID PRN 10/18/20 10/20/20 History celecoxib 200 mg PO Q2D 10/18/20 10/20/20 History melatonin 10 mg PO HS PRN 10/18/20 10/20/20 History montelukast 10 mg PO DAILY PRN 10/18/20 10/20/20 History trazodone 150 mg PO HS 10/18/20 10/20/20 History calcium carbonate [Calcium 300] 300 mg PO 3XWK 10/20/20 10/20/20 History Past Med/Surg History Medical History (Updated 10/20/20 @ 04:09 by Isela Menendez PA-C) Asthma Compound nevus Dysfunctional uterine bleeding Dyspareunia Ectopic Menorrhagia Ovarian cyst Premenstrual dysphoric syndrome Sebaceous cyst Subserous leiomyoma of uterus Surgical History (Updated 10/20/20 @ 13:04 by Ivan Thibodeaux MD) H/O unilateral salpingectomy 08/12 for ectopic H/O: myomectomy laparoscopic History of History of myringotomy Hx of tonsillectomy Family History Father Hypertension Skin cancer Social History Smoking Status: Never smoker Second Hand Exposure: No; Do You Dip or Chew Tobacco: No; Tobacco Cessation Education Requested by Patient: No Hx Alcohol Use: No Hx Substance Use: No Preferred Language: Vincentian Communication Ability: Effective 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 Beliefs That Will Affect Care: None marital status: Current Living Situation: Spouse Other Information That Helps Us Care for You: No Feels Safe at Home: Yes Assistive Devices: Glasses Review of Systems Review of Systems: All systems reviewed & are unremarkable except as noted in HPI & below Physical Exam Constitutional: no acute distress Neck: trachea midline Respiratory: normal respiratory effort, lungs clear to auscultation Cardiovascular: Rate/Rhythm: regular rate and regular rhythm Gastrointestinal (Abdomen): Inspection/Auscultation: abdomen normal to inspection and normal bowel sounds; abdomen not distended Percussion/Palpation: + abdomen tender (Throughout her abdomen with right side predominating to some degree) and abdomen soft Skin: no rashes, warm and dry Lymphatic: no cervical lymphadenopathy Results & Data Results & Data ([facility]) Vital Signs (Past 12 Hours) Vital Signs Temp Pulse Resp BP Pulse Ox 10/20/20 07:12 36.4 C L 77 16 122/76 95 10/20/20 05:29 36.3 C L 75 18 140/87 99 10/20/20 04:09 80 18 136/97 99 10/20/20 02:09 86 20 138/95 99 10/20/20 01:26 69 20 118/89 98 10/20/20 01:15 98 Laboratory Results 10/20/20 10/20/20 10/20/20 Range/Units 04:09 00:31 00:31 WBC 12.91 H (4.8-10.8) K/uL RBC 4.22 (4.2-5.4) M/uL Hgb 12.2 (12.0-16.0) g/dL Hct 37.4 (37-47) % MCV 88.6 (80-100) fL MCH 28.9 (25-34) pg MCHC 32.6 (32-36) g/dL RDW Std Deviation 44.1 (36.4-46.3) fL RDW Coeff of Han 13.5 (11.5-14.5) % Plt Count 296 (130-400) K/uL MPV 9.8 (7.4-10.4) fL Immature Gran % (Auto) 0.2 % Neut % (Auto) 65.4 % Lymph % (Auto) 25.1 % [place] % (Auto) 8.8 % Eos % (Auto) 0.3 % Baso % (Auto) 0.2 % Neut # (Auto) 8.45 H (1.4-6.5) K/uL Lymph # (Auto) 3.24 (1.2-3.4) K/uL [place] # (Auto) 1.14 H (0.11-0.59) K/uL Eos # (Auto) 0.04 (0-0.5) K/uL Baso # (Auto) 0.02 (0-0.2) K/uL Immature Gran # (Auto) 0.02 (0.00-0.02) K/uL Sodium 136 (136-145) mmol/L Potassium 3.4 L (3.5-5.1) mmol/L Chloride 105 (98-107) mmol/L Carbon Dioxide 27 (21-32) mmol/L Anion Gap 4.0 (3-11) BUN 22 H D (7-18) mg/dl Creatinine 1.02 (0.6-1.2) mg/dl Est Cr Clr Drug Dosing 99.5 ml/min Est GFR ( Amer) 83.1 Est GFR (Non-Af Amer) 71.7 BUN/Creatinine Ratio 22.0 H (10-20) Glucose 103 H (70-99) mg/dl Calcium 9.0 (8.5-10.1) mg/dl Total Bilirubin 0.3 (0.2-1) mg/dl AST 13 L (15-37) U/L ALT 20 (12-78) U/L Alkaline Phosphatase 63 (45-117) U/L Total Protein 7.9 (6.4-8.2) gm/dl Albumin 3.9 (3.4-5.0) gm/dl Globulin 4.0 (2.5-4.0) gm/dl Albumin/Globulin Ratio 1.0 (0.9-2) Lipase 99 (73-393) U/L SARS-CoV-2 Ag (Rapid) Negative (Negative) Diagnostic Findings CT abd pelvis IV con only CLINICAL HISTORY: Abdominal pain COMPARISON STUDY: 10/26/2020 TECHNIQUE: The patient was scanned in a dynamic helical fashion during intravenous administration of 93 cc of Optiray 320. A dose lowering technique was utilized adhering to the principles of ALARA. CT DOSE: 834.25 mGy.cm FINDINGS: Lower chest: The heart is normal in size and configuration, without pericardial effusion. The lung bases and pleural spaces are clear. Liver: The contrast-enhanced liver is normal in size, contour, and attenuation. There is no intrahepatic biliary ductal dilatation. The hepatic veins and portal veins are patent. Gallbladder: Cholelithiasis Spleen: Normal in size and attenuation. Pancreas: Unremarkable. Adrenal glands: Unremarkable. Kidneys: There is symmetric renal cortical enhancement. The kidneys are normal in size without hydronephrosis. Bowel: There are no transition zones indicate bowel obstruction. The appendix appears normal. There is no evidence of acute diverticulitis. Peritoneum: There is no intraperitoneal free air or abdominal ascites. There is a tiny fat-containing umbilical hernia. Vasculature: The abdominal aorta is normal in course and caliber. Adenopathy: None. Pelvic viscera: The bladder is thick-walled, likely secondary to incomplete distention Skeletal structures: No destructive osseous lesions are seen. IMPRESSION: 1. No acute abdominal or pelvic findings 2. No evidence of bowel obstruction. No evidence of free air 3. Normal appendix 4. No evidence of acute diverticulitis 5. Cholelithiasis ABDOMINAL ULTRASOUND, RIGHT UPPER QUADRANT HISTORY: Generalized abdominal pain, cholelithiasis noted on CT. COMPARISON: Abdomen and pelvis CT 10/18/2020. FINDINGS: Pancreas: The pancreas demonstrates a normal echotexture. Liver: Unremarkable. Gallbladder: No gallbladder wall thickening. There are few small gallstones. CBD: 4 mm. Right kidney: No hydronephrosis. IMPRESSION: Cholelithiasis. No gallbladder wall thickening. Code Status & VTE Plan VTE Prophylaxis Plan VTE Prophylaxis will be ordered: Yes (1) Abdominal pain Abdominal location: generalized Qualified Code(s): R10.84 - Generalized abdominal pain
[2020-10-20] MEDS ORDERED: LIDOCAINE HCL 2% 2 ML VIAL/AMP(20MG/ML) INFIL ONE (13:08)
[2020-10-20] MEDS ORDERED: fentaNYL citrate 100 MCG/2 ML VIAL ONE (13:08)
[2020-10-20] MEDS ORDERED: ROCURONIUM BROMIDE 10 MG/ML 5 ML VIAL IV ONE (13:08)
[2020-10-20] MEDS ORDERED: DEXAMETHASONE SOD INJ 4 MG/ML VIAL ONE (13:08)
[2020-10-20] MEDS ORDERED: MIDAZOLAM HCL 1 MG/ML 2ML VIAL ONE (13:08)
[2020-10-20] MEDS ORDERED: PROPOFOL IV EMULSION 10 MG/ML 20 ML VIAL IV ONE (13:08)
[2020-10-20] MEDS ORDERED: ONDANSETRON INJ 2 MG/ML 2 ML VIAL ONE (13:08)
--- NOTE | 2020-10-20 13:48 | Nuclear Medicine Report ---
NUCLEAR MEDICINE HEPATOBILIARY SCAN HISTORY: Diffuse abd pain with choleltihiasis COMPARISON: Abdominal ultrasound 10/20/2020. TECHNIQUE: Immediately following the intravenous administration of 5.5 mCi Tc-99m Choletec, dynamic a nterior abdominal imaging was performed. FINDINGS: Uniform hepatic tracer accumulation is shown. Prompt intrahepatic biliary excretion is seen. The gall bladder, common bile duct, and small bowel are all visualized by 45 minutes. This appearance represen ts the normal sequence of biliary excretion. IMPRESSION: 1. No evidence for cystic duct obstruction. ACT 112: Negative or not required by law. Electronically signed by: Robin Haas M.D. 10/20/2020 1:46 PM
[2020-10-20] MEDS: MoRPHine SULFATE 4 MG/ML 1 ML CARP\\VIAL IV PRN ×2 (13:51→21:24)
[2020-10-20] MEDS: ONDANSETRON INJ 2 MG/ML 2 ML VIAL IV PRN ×2 (16:27→22:33)
[2020-10-20] MEDS: PANTOprazole 40 MG TAB PO SCH (20:26)
[2020-10-20] MEDS: KETOROLAC TROMETHAMINE 15 MG/ML VIAL IV PRN (20:26)
[2020-10-20] MEDS: ACETAMINOPHEN 325 MG TAB PO PRN (22:33)
[2020-10-20] MEDS: traZODone HCL 50 MG TAB PO SCH (22:34)
[2020-10-21] MEDS: LACTATED RINGER'S 1,000 ML IV SCH ×3 (06:42→23:30)
[2020-10-21] MEDS ORDERED: ACETAMINOPHEN 1000 MG/100 ML IV IV ONE (06:51)
[2020-10-21 07:13] LABS: Basophils # (auto) 0.03 K/uL (0-0.2); Basophils % (auto) 0.5 %; Eosinophils # (auto) 0.07 K/uL (0-0.5); Eosinophils % (auto) 1.1 %; Hematocrit (blood only) 37.8 % (37-47); Hemoglobin 11.9 g/dL (12.0-16.0); Immature Granulocytes # (auto) 0.01 K/uL (0.00-0.02); Immature Granulocytes % (auto) 0.2 %; Lymphocytes % (auto) 37.1 %; Mean Corpuscular Hemoglobin 28.5 pg (25-34); Mean Corpuscular Hgb Conc 31.5 g/dL (32-36); Mean Corpuscular Volume 90.6 fL (80-100); Mean Platelet Volume 9.6 fL (7.4-10.4); Monocytes # (auto) 0.54 K/uL (0.11-0.59); Monocytes % (auto) 8.7 %; Neutrophils # (auto) 3.25 K/uL (1.4-6.5); Neutrophils % (auto) 52.4 %; Platelet Count 254 K/uL (130-400); RDW Coefficient of Variation 13.8 % (11.5-14.5); RDW Standard Deviation 45.4 fL (36.4-46.3); Red Blood Count 4.17 M/uL (4.2-5.4)
[2020-10-21 07:30] LABS: Albumin Level 3.2 gm/dl (3.4-5.0); BUN Creatinine Ratio 11.9 (10-20); Calcium 8.4 mg/dl (8.5-10.1); Creatinine Clr Calc Pharmacy 118.1 ml/min; Est GFR (African American) 102.2; Est GFR (Non-African American) 88.1; Potassium 4.1 mmol/L (3.5-5.1)
[2020-10-21 07:32] LABS: Albumin Globulin Ratio 0.9 (0.9-2); Bilirubin,Total 0.5 mg/dl (0.2-1); Globulin 3.6 gm/dl (2.5-4.0); Total Protein 6.8 gm/dl (6.4-8.2)
[2020-10-21] MEDS: PANTOprazole 40 MG TAB PO SCH ×2 (07:37→20:30)
[2020-10-21] MEDS: buPROPion SR 100 MG TABCR PO SCH (07:37)
[2020-10-21] MEDS: MoRPHine SULFATE 4 MG/ML 1 ML CARP\\VIAL IV PRN ×3 (07:38→22:56)
[2020-10-21] MEDS: ACETAMINOPHEN 325 MG TAB PO PRN ×2 (07:38→22:05)
[2020-10-21] MEDS: ONDANSETRON INJ 2 MG/ML 2 ML VIAL IV PRN (07:39)
--- NOTE | 2020-10-21 07:54 | Surgery Progress Note ---
Date of Service October 21, 2020 Assessment & Plan (1) Abdominal pain: The patient continues to have abdominal pain. It is now more right upper quadrant as it was more diffuse previously. We discussed cholecystectomy. The patient is anxious to proceed with cholecystectomy. I explained the laparoscopic procedure and the possible need to convert to an open procedure. We also discussed the fact that this may or may not relieve her symptoms. She still wants to proceed. I explained the possible complications and answered her questions. She has signed a consent form. Admission and Anticipated Discharge Date Admission Date: October 20, 2020 Subjective Patient continues to have pain. It is unchanged in severity however it is now located more in the right upper quadrant. She has no nausea. She has not vomited. She has had no fever. Physical Exam Gastrointestinal (Abdomen): Inspection/Auscultation: normal bowel sounds; abdomen not distended Percussion/Palpation: + abdomen tender (Now tender in the right upper quadrant subcostal region) and abdomen soft; no abdominal mass Results & Data ([facility]) Vital Signs (Past 12 Hours) Vital Signs Temp Pulse Resp BP Pulse Ox 10/21/20 06:44 36.7 C 66 19 112/71 97 10/20/20 23:05 36.4 C L 75 18 108/69 93 Laboratory Results 10/21/20 10/21/20 Range/Units 07:02 07:02 WBC 6.20 (4.8-10.8) K/uL RBC 4.17 L (4.2-5.4) M/uL Hgb 11.9 L (12.0-16.0) g/dL Hct 37.8 (37-47) % MCV 90.6 (80-100) fL MCH 28.5 (25-34) pg MCHC 31.5 L (32-36) g/dL RDW Std Deviation 45.4 (36.4-46.3) fL RDW Coeff of Han 13.8 (11.5-14.5) % Plt Count 254 (130-400) K/uL MPV 9.6 (7.4-10.4) fL Immature Gran % (Auto) 0.2 % Neut % (Auto) 52.4 % Lymph % (Auto) 37.1 % [place] % (Auto) 8.7 % Eos % (Auto) 1.1 % Baso % (Auto) 0.5 % Neut # (Auto) 3.25 (1.4-6.5) K/uL Lymph # (Auto) 2.30 (1.2-3.4) K/uL [place] # (Auto) 0.54 (0.11-0.59) K/uL Eos # (Auto) 0.07 (0-0.5) K/uL Baso # (Auto) 0.03 (0-0.2) K/uL Immature Gran # (Auto) 0.01 (0.00-0.02) K/uL Sodium 140 (136-145) mmol/L Potassium 4.1 D (3.5-5.1) mmol/L Chloride 107 (98-107) mmol/L Carbon Dioxide 31 (21-32) mmol/L Anion Gap 2.0 L (3-11) BUN 10 D (7-18) mg/dl Creatinine 0.86 (0.6-1.2) mg/dl Est Cr Clr Drug Dosing 118.1 ml/min Est GFR ( Amer) 102.2 Est GFR (Non-Af Amer) 88.1 BUN/Creatinine Ratio 11.9 (10-20) Glucose 92 (70-99) mg/dl Calcium 8.4 L (8.5-10.1) mg/dl Total Bilirubin 0.5 (0.2-1) mg/dl AST 9 L (15-37) U/L ALT 16 (12-78) U/L Alkaline Phosphatase 55 (45-117) U/L Total Protein 6.8 (6.4-8.2) gm/dl Albumin 3.2 L (3.4-5.0) gm/dl Globulin 3.6 (2.5-4.0) gm/dl Albumin/Globulin Ratio 0.9 (0.9-2) (1) Abdominal pain Abdominal location: generalized Qualified Code(s): R10.84 - Generalized abdominal pain
[2020-10-21] MEDS ORDERED: HEPARIN (PORCINE) 1000 UNIT/ML 10 ML (CATH LAB USE ONLY) ONE (09:58)
[2020-10-21] MEDS ORDERED: BUPIVACAINE 0.5 % 5 MG/1 ML MPF 30ML VIAL ONE (09:58)
--- NOTE | 2020-10-21 11:03 | Anesthesiology Consultation ---
Date of Service October 21, 2020 Assessment & Plan (1) Encounter for pre-operative examination: Chart Review Chart Review: Acceptable Risk for Surgery and Patient NOT seen in Pre Admission Testing Consults Requested none History Surgery Operation Date: 10/20/20 08:50 Proposed Procedures p Laparoscopic Cholecystectomy - Ivan Thibodeaux MD Operation Date: 10/21/20 10:00 Proposed Procedures p Laparoscopic Cholecystectomy - Ivan Thibodeaux MD Height/Weight Height: 5 ft 8 in Weight: 107 kg Allergies Allergy/AdvReac Type Severity Reaction Status Date / Time Fish Containing Products Allergy Severe Mouth,tongue Verified 10/20/20 01:32 and throat swelling. Hives. shellfish derived Allergy Severe Mouth,tongue Verified 10/20/20 01:32 and throat swelling. Hives. norethindrone [From Marielos] Allergy Intermediate Itchiness Verified 10/20/20 01:32 prednisone Allergy Intermediate Facial Verified 10/20/20 01:32 swelling bismuth subsalicylate Allergy Mild EYES Verified 10/20/20 01:32 SWELLED SHUT, FACIAL SWELLING Sulfa (Sulfonamide Allergy Mild Unknown Verified 10/20/20 01:32 Antibiotics) sulfamethoxazole Allergy Mild Unknown Verified 10/20/20 01:32 trimethoprim Allergy Mild Unknown Verified 10/20/20 01:32 Medications Home Medications Medication Instructions Recorded Confirmed Last Taken escitalopram oxalate 10 mg tablet 10 mg PO .COMPLEX #14 tab 07/24/20 10/20/20 Unknown lorazepam 1 mg tablet 1 mg PO DAILY PRN #30 tab 10/16/20 10/20/20 Unknown acetaminophen [Tylenol] 650 mg PO QID PRN 10/18/20 10/20/20 Unknown bupropion HCl 200 mg PO QAM 10/18/20 10/20/20 10/19/20 calcium carbonate [Tums] 200 mg PO QID PRN 10/18/20 10/20/20 Unknown celecoxib 200 mg PO Q2D 10/18/20 10/20/20 10/19/20 melatonin 10 mg PO HS PRN 10/18/20 10/20/20 Unknown montelukast 10 mg PO DAILY PRN 10/18/20 10/20/20 Unknown trazodone 150 mg PO HS 10/18/20 10/20/20 10/18/20 calcium carbonate [Calcium 300] 300 mg PO 3XWK 1110/20/20 10/18/20 Active Medications Generic Name Dose Route Start Last Admin Trade Name Freq PRN Reason Stop Dose Admin Acetaminophen 650 mg 10/20/20 05:27 10/21/20 07:38 Acetaminophen 325 Mg Tab PO 11/19/20 05:26 650 mg QID PRN Administration Pain Bupropion HCl 200 mg 10/20/20 09:00 10/21/20 07:37 Bupropion Sr 100 Mg Tabcr PO 11/19/20 08:59 200 mg QAM FRANKIE Administration Lactated Ringer's 1,000 mls @ 100 mls/hr 10/20/20 05:27 10/21/20 06:42 Lr IV 11/19/20 05:26 100 mls/hr .Q10H FRANKIE Administration Ketorolac Tromethamine 15 mg 10/20/20 18:35 10/20/20 20:26 Ketorolac Tromethamine 15 Mg/Ml Vial IV 10/25/20 18:34 15 mg Q6H PRN Administration Pain Miscellaneous 1 ea 10/20/20 08:00 10/21/20 07:57 Lexapro~Order Awaiting Action N/A 11/19/20 07:59 Not Given QS FRANKIE Morphine Sulfate 2 mg 10/20/20 05:27 10/20/20 06:14 Morphine Sulfate 2 Mg/Ml Carp IV 11/03/20 05:26 2 mg Q3H PRN Administration Pain (1,2,3,4,5) & Pre PT Morphine Sulfate 4 mg 10/20/20 05:27 10/21/20 07:38 Morphine Sulfate 4 Mg/Ml 1 Ml Carp\Vial IV 11/03/20 05:26 4 mg Q3H PRN Administration Pain (6,7,8,9,10) Ondansetron HCl 4 mg 10/20/20 05:27 10/21/20 07:39 Ondansetron Inj 2 Mg/Ml 2 Ml Vial IV 11/19/20 05:26 4 mg Q4H PRN Administration Nausea And Vomiting Pantoprazole Sodium 40 mg 10/20/20 21:00 10/21/20 07:37 Pantoprazole 40 Mg Tab PO 11/19/20 20:59 40 mg BID FRANKIE Administration Trazodone HCl 150 mg 10/20/20 21:00 10/20/20 22:34 Trazodone Hcl 50 Mg Tab PO 11/19/20 20:59 150 mg HS FRANKIE Administration NPO Date Last Intake of Fluids: 10/20/20 Time Last Intake of Fluids: 23:00 Date Last Intake of Solids: 10/20/20 Time Last Intake of Solids: 23:00 Past Medical History Medical History Asthma Compound nevus Dysfunctional uterine bleeding Dyspareunia Ectopic Menorrhagia Ovarian cyst Premenstrual dysphoric syndrome Sebaceous cyst Subserous leiomyoma of uterus Past Family History Family History Father Hypertension Skin cancer Past Surgical History Surgical History H/O unilateral salpingectomy 08/12 for ectopic H/O: myomectomy laparoscopic History of History of myringotomy Hx of tonsillectomy Social History Smoking Status: Never smoker Do You Dip or Chew Tobacco: No Hx Alcohol Use: No Hx Substance Use: No Physical Exam Vital Signs Last Vital Signs Temp 36.7 C 10/21/20 06:44 Pulse 66 10/21/20 06:44 Resp 19 10/21/20 06:44 BP 112/71 10/21/20 06:44 Pulse Ox 97 10/21/20 06:44 Testing Laboratory Results 10/21/20 07:02 10/21/20 07:02
[2020-10-21] MEDS ORDERED: PROMETHAZINE HCL 12.5 MG in SODIUM CHLORIDE 0.9% 50 ML IV PRN (11:42)
[2020-10-21] MEDS ORDERED: ePHEDrine sulfate 50 MG/ML AMP IV PRN (11:42)
[2020-10-21] MEDS ORDERED: ATROPINE SULFATE 0.1 MG/ML 10ML SYR IV PRN (11:42)
[2020-10-21] MEDS ORDERED: SCOPOLAMINE 1.5 MG TDSY TD ONE ×2 (11:42)
[2020-10-21] MEDS ORDERED: ONDANSETRON INJ 2 MG/ML 2 ML VIAL IV PRN (11:42)
[2020-10-21] MEDS ORDERED: PROPOFOL IV EMULSION 10 MG/ML 20 ML VIAL IV ONE (12:17)
[2020-10-21] MEDS ORDERED: LARYING-O-JET KIT (LTA) EXT ONE (12:17)
[2020-10-21] MEDS ORDERED: ROCURONIUM BROMIDE 10 MG/ML 5 ML VIAL IV ONE (12:17)
[2020-10-21] MEDS ORDERED: MIDAZOLAM HCL 1 MG/ML 2ML VIAL IV ONE (12:17)
[2020-10-21] MEDS ORDERED: LIDOCAINE 2% 20 MG/ML 5 ML SYR IV ONE (12:17)
[2020-10-21] MEDS ORDERED: fentaNYL citrate 100 MCG/2 ML VIAL IV ONE (12:17)
[2020-10-21] MEDS ORDERED: DEXAMETHASONE SOD INJ 4 MG/ML VIAL IV ONE (12:17)
[2020-10-21] MEDS ORDERED: ONDANSETRON INJ 2 MG/ML 2 ML VIAL IV ONE (12:17)
[2020-10-21] MEDS ORDERED: ceFAZolin 2000MG 2,000 MG/15 ML SYR IV ONE (12:53)
--- NOTE | 2020-10-21 13:49 | Post Operative Brief Note ---
Immediate Post Op Note v1 Date of Surgery October 21, 2020 Pre & Post Diagnosis Operation Date: 10/20/20 08:50 <No data on this case meets the specified criteria> Operation Date: 10/21/20 10:00 Pre-Op Diagnosis: Abdominal pain, Cholelithiasis Post-Op Diagnosis: Abdominal pain, Cholelithiasis I identified the patient and participated in the time-out.: Yes Procedure Operation Date: 10/20/20 08:50 <No data on this case meets the specified criteria> Operation Date: 10/21/20 10:00 Actual Procedures p Laparoscopic Cholecystectomy(Not Applicable) - Ivan Thibodeaux MD s Laparoscopic Appendectomy(Not Applicable) - Ivan Thibodeaux MD Surgeon Ivan Thibodeaux MD Digital Performance Analyst None Estimated Blood Loss 10 Findings Consistent with Post-Op Diagnosis
[2020-10-21] MEDS ORDERED: fentaNYL citrate 100 MCG/2 ML VIAL ONE (13:57)
[2020-10-21] MEDS: fentaNYL citrate 100 MCG/2 ML VIAL IV PRN ×2 (13:58→14:04)
[2020-10-21] MEDS ORDERED: HYDROmorphone INJ 0.5 MG/0.5 ML SYR ONE (14:16)
[2020-10-21] MEDS ORDERED: HYDROmorphone INJ 1 MG/ML SYRINGE ONE ×2 (14:17→14:43)
[2020-10-21] MEDS: HYDROmorphone INJ 1 MG/ML SYRINGE IV PRN ×8 (14:18→15:00)
--- NOTE | 2020-10-21 14:55 | Operative Report (OR) ---
DATE OF OPERATION: 10/20/2020 PREOPERATIVE DIAGNOSES: Cholelithiasis, possible cholecystitis. POSTOPERATIVE DIAGNOSES: Cholelithiasis, possible cholecystitis as well as possible appendicitis. PROCEDURE: Laparoscopic cholecystectomy and appendectomy with exploration. SURGEON: Ivan Thibodeaux MD. FINDINGS: The gallbladder was not dilated. The wall was not thickened. The cystic duct was not dilated. There were multiple stones within the gallbladder. The appendix was attached to the inferior side of the cecum and then the cecum was high riding. It was at the level of the umbilicus and just above. That was the area of her symptoms. The proximal appendix at the junction with the gallbladder appeared normal; however, about 1.5 cm beyond that junction there was a dilated area of the appendix and beyond that it was mildly dilated, but was also firm. The pelvis was inspected. There was a small to moderate sized cyst of the left ovary. The right ovary and the uterus appeared normal. I followed the small bowel from the ileocecal valve backwards until it went over towards the left side of the abdomen. There was no evidence of a Meckel's diverticulum. There was no inflammatory change of the small bowel. There was no fat creeping. There were stones lodged in the neck of the gallbladder. TECHNIQUE: The patient was given a general anesthetic and the area was prepped and draped in the usual sterile fashion. The skin inferior to the umbilicus was anesthetized with 1% Xylocaine without epinephrine. Skin incision was made and was carried down through the subcutaneous tissue to the fascia which was grasped with 2 Miriam clamps and incised between. The peritoneum was identified, incised, and the introducer was placed bluntly. The abdomen was then insufflated to a pressure of 15 mmHg with carbon dioxide. The sites for the upper midline, midclavicular and anterior axillary introducers were chosen and the skin and layers were anesthetized with the same local. Skin incisions were made and the introducers were placed under direct vision. I then explored the abdomen with findings as stated above. The gallbladder was removed first. Traction was placed upward on the gallbladder. The peritoneum on the lateral side of the neck was opened and peeled towards the common bile duct. The gallbladder was dissected away from the liver on that side as well. Further dissection was carried over the anterior surface of the neck of the gallbladder and the triangle of Calot was opened and the gallbladder was dissected away from the liver on the medial side. This allowed me to visualize the cystic duct and cystic artery. There was some fatty tissue adherent to the cystic duct. This was peeled away. There were some thickened lymphatics that were cauterized and peeled away as well. This allowed me then to establish a plane between the cystic duct and the cystic artery. I then performed dissection of the gallbladder away from the liver behind those structures creating a good window. Two clips were placed on the proximal cystic duct, one near the junction with the gallbladder and it was divided. Two clips were placed on the proximal cystic artery, one near the gallbladder and it was divided. The gallbladder was then peeled off the liver bed using electrocautery. As the gallbladder was being peeled off, there were 2 holes created in the gallbladder and there was some bile spillage, but no stones were spilled. Once the gallbladder was completely from the liver, it was placed into an Endobag and brought out through the upper midline incision where I had opened the incision a little bit more and stretched the layers in order to extract the gallbladder within the bag, but that was accomplished. That introducer was replaced. The right upper quadrant was inspected. The subdiaphragmatic and subhepatic spaces were irrigated and the irrigation was removed and that was repeated until the return was clear. I then turned my attention to the appendix. Because of the dilated area a 1.5 cm above the junction with the cecum and the dilation, mildly of the appendix beyond it with the fact that it was firm, lead me to decide to remove the appendix as well. The appendix was elevated and I was able to establish a plane between the base of the appendix and the mesoappendix. The mesoappendix was divided with 2 firings of the Endo-KRISTIE stapler. There was a small amount of oozing from the smallest of those pedicles and this was controlled with a clip. The appendix was then amputated using the Endo-KRISTIE being sure to amputate it at the base. The appendix was placed into an Endobag and brought out through the upper midline incision with ease. That introducer was replaced. The area around the cecum was irrigated and irrigation removed and the staple lines were inspected and there was no further oozing. I then removed any irrigation that had entered the right upper quadrant and any that entered the pelvis. The gas was allowed to escape and the introducers were removed. The fascia of the umbilical and upper midline introducer sites was closed with interrupted 0 Vicryl and the skin of all the incisions was closed with 4-0 Monocryl in either an interrupted or running subcuticular fashion. The skin was cleansed, dried, benzoin placed, Steri-Strips applied. Estimated blood loss was 10 mL Sponge, needle and instrument counts were correct prior to closure. The patient tolerated the surgical procedure without complication and was transferred to recovery. I attest to the content of the Intraoperative Record and any orders documented therein. Any exception s are noted below.
--- NOTE | 2020-10-21 15:34 | Anesthesiology Progress Note ---
Date of Service October 21, 2020 Anesthesia Post Procedure Vital Signs Vital Signs: Temp Pulse Pulse Resp BP Pulse Ox 10/21/20 15:31 36.8 C 77 16 101/61 97 10/21/20 15:15 80 16 105/72 97 10/21/20 15:05 37.0 C 77 16 117/62 97 10/21/20 14:55 66 12 115/62 96 10/21/20 14:45 72 12 139/69 98 10/21/20 14:35 62 16 112/71 98 10/21/20 14:25 64 14 125/76 98 10/21/20 14:15 65 12 125/75 98 10/21/20 14:05 64 14 128/80 100 10/21/20 13:55 83 14 125/80 100 10/21/20 13:48 36.3 C L 80 16 107/80 100 10/21/20 06:44 36.7 C 66 19 112/71 97 10/20/20 23:05 36.4 C L 75 18 108/69 93 Pain Intensity Bilateral Abdomen: Pain Intensity: 4 Transfer of Care Handoff Completed per policy Notes Mental Status: alert / awake / arousable and participated in evaluation Patient Amnestic to Procedure: Yes Nausea / Vomiting: adequately controlled Pain: adequately controlled Airway Patency, RR, SpO2: stable & adequate BP & HR: stable & adequate Hydration State: stable & adequate Anesthetic Complications: no major complications apparent and Pt Satisfied with anesthetic care
[2020-10-21] MEDS ORDERED: CHECK SCOPOLAMINE PATCH PLACEMENT SCH (16:00)
[2020-10-21] MEDS ORDERED: diphenhydrAMINE 50 MG/ML VIAL IV PRN (16:07)
[2020-10-21] MEDS ORDERED: COUGH DROP (SUGAR FREE) LOZ 24 LOZ/1 BOX BUCCAL ONE (16:38)
[2020-10-21] MEDS: DOCUSATE SODIUM 100 MG CAP PO SCH (20:30)
[2020-10-21] MEDS: KETOROLAC TROMETHAMINE 15 MG/ML VIAL IV PRN (20:30)
[2020-10-21] MEDS: traZODone HCL 50 MG TAB PO SCH (22:56)
[2020-10-21] MEDS ORDERED: FLUCONAZOLE 50 MG TAB PO ONE (23:39)
[2020-10-22] MEDS: MoRPHine SULFATE 4 MG/ML 1 ML CARP\\VIAL IV PRN ×4 (03:37→16:31)
[2020-10-22] MEDS: buPROPion SR 100 MG TABCR PO SCH (08:04)
[2020-10-22] MEDS: DOCUSATE SODIUM 100 MG CAP PO SCH (08:04)
[2020-10-22] MEDS: PANTOprazole 40 MG TAB PO SCH (08:04)
[2020-10-22] MEDS: LACTATED RINGER'S 1,000 ML IV SCH (08:04)
--- NOTE | 2020-10-22 10:38 | Surgery Progress Note ---
Date of Service October 22, 2020 Assessment & Plan (1) Abdominal pain: Postoperative day #1 status post laparoscopic cholecystectomy and appendectomy Awaiting pathology regarding presence of appendicitis Patient's preoperative symptoms have resolved She is hungry so we will put her on a regular diet If she tolerates the regular diet can discharge this afternoon to home Discussed postoperative activity restrictions and follow-up. Admission and Anticipated Discharge Date Admission Date: October 20, 2020 Subjective Postoperative day #1 status post laparoscopic cholecystectomy and appendectomy Having incisional discomfort. Preoperative diffuse pain and nausea have resolved Patient is hungry Ambulated Physical Exam Gastrointestinal (Abdomen): Inspection/Auscultation: normal bowel sounds and + abdominal surgical incision (All are clean, dry and intact); abdomen not distended Percussion/Palpation: + abdomen tender (Incisional only) and abdomen soft Results & Data ([facility]) Vital Signs (Past 12 Hours) Vital Signs Temp Pulse Pulse Resp BP BP Pulse Ox 10/22/20 07:28 36.7 C 70 18 117/70 94 10/22/20 03:56 36.8 C 64 16 105/66 95 10/22/20 03:00 10/21/20 22:51 37.3 C 66 16 113/71 93 Pulse Ox 10/22/20 07:28 10/22/20 03:56 10/22/20 03:00 97 10/21/20 22:51 (1) Abdominal pain Abdominal location: generalized Qualified Code(s): R10.84 - Generalized abdominal pain
[2020-10-22] MEDS: KETOROLAC TROMETHAMINE 15 MG/ML VIAL IV PRN (11:30)
[2020-10-22] MEDS ORDERED: COUGH DROP (SUGAR FREE) LOZ 24 LOZ/1 BOX BUCCAL ONE (11:39)
[2020-10-22] MEDS: ACETAMINOPHEN 325 MG TAB PO PRN (12:35)
[2020-10-22] MEDS ORDERED: PERCOCET 5/325MG HOMEPACK PO ONE (17:30)
[2020-10-22] MEDS: ONDANSETRON INJ 2 MG/ML 2 ML VIAL IV PRN (17:53)
--- NOTE | 2020-10-23 11:28 | Discharge Summary ---
Date of Service October 23, 2020 Admission HPI Per Admitting Provider This is a 35-year-old female who presented back to the emergency room with a complaint of abdominal pain. The patient states that her discomfort began 2 days ago. 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 The intensity increased. It continued into the evening and she was seen in the emergency room where a work-up including a CT scan of the abdomen showed only cholelithiasis but no evidence of cholecystitis. There were no other abnormalities identified. She went home and yesterday had some mild discomfort. She ate small amounts of food but then last night had an increase in the intensity of the discomfort. She described the first discomfort just to the left of the midline in the upper abdomen. It then moved towards the right and around to her back and it was throughout her abdomen. At the present time she points to the entire right side of her abdomen as the most severe discomfort but has discomfort throughout. She had nausea and last night developed multiple episodes of vomiting. It was for retained food stuff. She had no hematemesis. She had some diarrhea on the day of the onset of the discomfort. She has had soft stools since. A few weeks ago she had a day with frequent diarrhea. Over the next 2 days the frequency decreased. She did not have mucus with her stool. There is no personal or family history of inflammatory bowel disease. She had no dysuria or hematuria. She denies melena and hematochezia. She has not had fever or chills. Admission Exam Per Admitting Provider Constitutional: no acute distress Neck: trachea midline Respiratory: normal respiratory effort, lungs clear to auscultation Cardiovascular: Rate/Rhythm: regular rate and regular rhythm Gastrointestinal (Abdomen): Inspection/Auscultation: abdomen normal to inspection and normal bowel sounds; abdomen not distended Percussion/Palpation: + abdomen tender (Throughout her abdomen with right side predominating to some degree) and abdomen soft Skin: no rashes, warm and dry Lymphatic: no cervical lymphadenopathy Principal Diagnosis Cholelithiasis Possible appendicitis/path pending Discharge Exam Constitutional no acute distress Gastrointestinal (Abdomen) Inspection/Auscultation: normal bowel sounds and + abdominal surgical incision (All were clean, dry and intact); abdomen not distended Percussion/Palpation: + abdomen tender; + abdomen not soft Discharge Data Allergies Allergy/AdvReac Type Severity Reaction Status Date / Time Fish Containing Products Allergy Severe Mouth,tongue Verified 10/20/20 01:32 and throat swelling. Hives. shellfish derived Allergy Severe Mouth,tongue Verified 10/20/20 01:32 and throat swelling. Hives. norethindrone [From [employer]ielos] Allergy Intermediate Itchiness Verified 10/20/20 01:32 prednisone Allergy Intermediate Facial Verified 10/20/20 01:32 swelling bismuth subsalicylate Allergy Mild EYES Verified 10/20/20 01:32 SWELLED SHUT, FACIAL SWELLING Sulfa (Sulfonamide Allergy Mild Unknown Verified 10/20/20 01:32 Antibiotics) sulfamethoxazole Allergy Mild Unknown Verified 10/20/20 01:32 trimethoprim Allergy Mild Unknown Verified 10/20/20 01:32 Consultations 10/20/20 03:32 ED Decision to Admit Stat Procedures Performed Operation Date: 10/20/20 08:50 <No data on this case meets the specified criteria> Operation Date: 10/21/20 10:00 Actual Procedures p Laparoscopic Cholecystectomy(Not Applicable) - Ivan Thibodeaux MD s Laparoscopic Appendectomy(Not Applicable) - Ivan Thibodeaux MD Ordered Studies 10/20/20 01:11 US abdomen limited Urgent Hospital Course (1) Abdominal pain: The patient was admitted for observation from the emergency room. A hepat obiliary scan was obtained which showed filling of the gallbladder. The next morning however she was having increased abdominal pain. It was more in the right upper quadrant than anywhere else. We had a long discussion about her symptoms relative to her cholelithiasis. She understood that removing her gallbladder may not have helped her symptoms but she chose to have cholecystectomy. She was taken to the operating room and underwent a laparoscopic cholecystectomy but during the procedure the appendix was noted to appear abnormal as well. The appendix was attached to the cecum which was high riding and was more in the mid right side and upper quadrant. I made the decision to remove the appendix as well. On postoperative day #1 she was having mild surgical discomfort but her preoperative pain and nausea had resolved. She was tolerating a regular diet by postoperative day #2 although her appetite is not returned to normal. There was still some mild right upper quadrant discomfort. Her white blood cell count had decreased to normal. She felt that she could manage her nausea which was mild in her pain at home. She was discharged to home on postoperative day #2 in stable condition. Discharge instructions and follow-up were discussed with her. Total Time Total Time Spent Total Time Spent (In Minutes): 15 Discharge Plan Discharge Items Patient Disposition: Home - Self-Care Reason For Visit: ABDOMINAL PAIN Discharge Diagnosis: Cholelithiasis Condition on Discharge: Good Activity: As commented below Non-emergency contact: Surgeon Call non-emergency contact if: your temperature is above 101.5 and your wound has increased redness Follow-up/Referrals: Teodoro Martinez MD [Primary Care Provider] - Diet: Regular Addtl Attending Provider Instructions: Post-Surgical ~Discharge Instructions Activity Recommendations: - lifting limitation: (10 pounds for 2 weeks), - exercise/sex/sports limit: (nonstrenuous for 2 weeks), - driving or machine use limit: (none for 1 week), - Shower/bathe limit: (may shower beginning tomorrow) Diet: - Resume previous diet SPECIAL CARE INSTRUCTIONS: - May shower in 24 hours. Let water run over area and pat dry. - Leave steri strips on for one week. - Call the surgeon's office with any questions or concerns - - (ex. temperature higher than 101 degrees F, excessive bleeding or pain). MEDICATIONS: - Resume previous medications unless instructed otherwise by your surgeon. - Ibuprofen 600 mg every 6 hours with food - Percocet 1 every 4 hours, as needed for pain FOLLOW UP VISIT: - If not already scheduled, please call the office to schedule a two week follow-up appointment. Office number Pending Studies at Discharge: Yes Studies:: Pathology Stand-Alone Forms: My [facility] [id number], Smoking Cessation Medications and DC Order Prescriptions: New oxycodone-acetaminophen [Percocet] 5-325 mg tablet 1 tab PO Q6H PRN (Reason: pain) Qty: 5 RF: 0 Continued lorazepam 1 mg tablet 1 mg PO DAILY PRN (Reason: anxiety) Qty: 30 RF: 0 escitalopram oxalate [Lexapro] 10 mg tablet 10 mg PO .COMPLEX Qty: 14 RF: 5 bupropion HCl 200 mg tablet sustained-release 12 hr 200 mg PO QAM RF: 0 montelukast 10 mg tablet 10 mg PO DAILY PRN (Reason: Allergy Symptoms) RF: 0 trazodone 150 mg tablet 150 mg PO HS RF: 0 melatonin 10 mg Tablet 10 mg PO HS PRN (Reason: Insomnia) RF: 0 celecoxib 200 mg capsule 200 mg PO Q2D RF: 0 acetaminophen [Tylenol] 325 mg Tablet 650 mg PO QID PRN (Reason: Pain) RF: 0 calcium carbonate [Tums] 200 mg calcium (500 mg) Tablet,Chewable 200 mg PO QID PRN (Reason: Gi Upset) RF: 0 calcium carbonate 300 mg (750 mg) Tablet,Chewable 300 mg PO 3XWK RF: 0 Discharge Orders: Discharge Order (Routine); Ordered 10/22/20 Ordered By: Ivan Thibodeaux Admission Data Admit Date/Time: 10/20/20 03:43 Attending Provider: Rina Vasquez Admit Provider: Rina Vasquez Primary Care Provider: Teodoro Martinez Other Providers: Rina Vasquez Other Interventions: Discharge Summary Assessment (RN) Last Done: 10/22/20 16:47
== END 2020-10-22 18:49 | disposition home or self-care (01) ==
LOC: ED 00:10 → 3N 00:10